=== PATIENT | male | born 1990 | race Caucasian/White ===

== ENCOUNTER 2017-06-24 14:10 | Emergency (ER) | payer SELFPAY ==
[~2017-06-24] VITALS: Ht 182.9 cm; Wt 101.7 kg
[2017-06-24 14:16] VITALS: TEMP 36.8; Ht 182.9 cm; Wt 101.7 kg
[2017-06-24] MEDS ORDERED: MELA1TAB5 PO (14:40)
[2017-06-24] MEDS ORDERED: MULT-506 PO (14:40)
[2017-06-24] MEDS ORDERED: ACETAMINOPHEN 500 MG TAB PO STA (14:47)
[2017-06-24] MEDS ORDERED: KETOROLAC TROMETHAMINE 30 MG/ML VIAL IV STA (14:47)
[2017-06-24 15:01] LABS: BASO % 0.2 %; BASO ABS # 0.02 K/uL (0-0.2); COMPLETE YES; EOS % 0.6 %; HEMATOCRIT 46.7 % (42-52); IG% 0.2 %; LYMPH ABS # 1.72 K/uL (1.2-3.4); MEAN CELL VOLUME 90.3 fL (80-100); MEAN CORPUSCULAR HEMOGLOBIN 31.3 pg (25-34); MEAN CORPUSCULAR HGB CONC 34.7 g/dl (32-36); MEAN PLATELET VOLUME 9.5 fL (7.4-10.4); MONO % 10.2 %; NEUT % 74.8 %; PLATELET COUNT 239 K/uL (130-400); RED BLOOD COUNT 5.17 M/uL (4.7-6.1); WHITE BLOOD COUNT 12.31 K/uL (4.8-10.8)
[2017-06-24 15:23] LABS: ALT/SGPT 37 U/L (12-78); AST/SGOT 11 U/L (15-37); BLOOD UREA NITROGEN 15 mg/dl (7-18); CALCIUM 9.7 mg/dl (8.5-10.1); CARBON DIOXIDE 24 mmol/L (21-32); CHLORIDE 103 mmol/L (98-107); CREATININE 0.91 mg/dl (0.60-1.40); GLUCOSE 102 mg/dl (70-99); POTASSIUM 4.2 mmol/L (3.5-5.1); SODIUM 136 mmol/L (136-145)
--- NOTE | 2017-06-24 15:25 | DIAGNOSTIC IMAGING REPORT ---
CHEST 2 VIEWS ROUTINE CLINICAL HISTORY: Atypical chest pain and shortness of breath COMPARISON STUDY: No previous studies for comparison. FINDINGS: The heart is normal in size. There are subtle right basilar airspace opacities. A minimal pneumonitis is suspected. There is blunting of the right posterior costophrenic angle. There is no failure.[ IMPRESSION: Minimal right basilar airspace opacities, possibly representing a minimal pneumonitis. Clinical and radiographic follow-up is recommended. Electronically signed by: Mick Almaguer M.D. 06/24/2017 3:24 PM Dictated Date/Time: 06/24/2017 3:22 PM
[2017-06-24 15:30] LABS: ALKALINE PHOSPHATASE 73 U/L (45-117)
[2017-06-24] MEDS ORDERED: PRED50TA PO (15:32)
--- NOTE | 2017-06-24 15:33 | EMERGENCY ROOM VISIT NOTE ---
History Report prepared by Stacyibluisito: Winston Fallon Under the Supervision of: Dr. Jakub Tadeo M.D. First contact with patient: 14:17 Chief Complaint: SHORTNESS OF BREATH Stated Complaint: TROUBLE BREATHING, RIGHT CHEST PAIN Nursing Triage Summary: triage note: Pt reports shortness of breath and right sided chest pain that goes into back and right shoulder since 0230 today. History of Present Illness The patient is a 26 year old white male who presents to the ED with a cc of intermittent right sided chest pain beginning last night. Pain radiates into back and shoulder. Typically lasts 10-30 seconds at a time. Positive shortness of breath. Negative fevers, chills, leg swelling. He denies recent trauma or injury. Has chronic cough, and is a smoker. No history of blood clots. His pain is improved with standing and worsened with laying flat. Source of History: patient Onset: Last night Position: chest (right) Symptom Intensity: 10-30 second-long episodes Timing: intermittent Modifying Factors (Worsening): other (laying flat) Modifying Factors (Relieving): other (standing) Associated Symptoms: + SOB, No fevers, No chills Review of Systems See HPI for pertinent positives and negatives. A total of ten systems were reviewed and were otherwise negative. Past Medical & Surgical Medical Problems: (1) No Known Active Medical Problems Family History No pertinent family history stated. Social History Smoking Status: Current Every Day Smoker Occupation Status: employed Current/Historical Medications Scheduled Multivitamin (Multivitamin), 1 TAB PO DAILY Prednisone (Prednisone), 50 MG PO DAILY Scheduled PRN Melatonin (Kp Melatonin), 1 TAB PO HS PRN for Sleep Allergies Coded Allergies: Azithromycin (Unverified Allergy, Severe, ANAPHYLAXIS, 06/24/17) Ibuprofen (Unverified Allergy, Severe, UNKNOWN, 06/24/17) Penicillins (Unverified Allergy, Severe, ANAPHYLAXIS SEE COMMENT, 06/24/17 ) "ALL CILLINS" PER PT Physical Exam Vital Signs Date Time Temp Pulse Resp B/P (MAP) Pulse Ox O2 Delivery O2 Flow Rate FiO2 06/24/17 15:50 88 16 115/78 98 06/24/17 15:02 114/75 06/24/17 14:55 89 18 97 06/24/17 14:40 100 19 97 Room Air 06/24/17 14:32 140/87 06/24/17 14:26 90 06/24/17 14:25 132/76 06/24/17 14:23 Room Air 06/24/17 14:16 36.8 96 20 124/82 97 Room Air Physical Exam GENERAL: Awake, alert, well-appearing, NAD HENT: Normocephalic, atraumatic. EYES: Normal conjunctiva. Sclera non-icteric. NECK: Supple. No nuchal rigidity. FROM. RESPIRATORY: CTAB, no rhonchi, wheezing, crackles CARDIAC: RRR, no MRG ABDOMEN: Soft, BS+, No RUQ TTP. No CVA tenderness. MSK: no LE edema. Mild right rib TTP. No crepitus. No redness or rash. No vesicles noted. No posterior chest wall TTP. NEURO: GCS 15, CN 2-12 intact, moves all 4s on command SKIN: No rash or jaundice noted. Medical Decision & Procedures ER Provider Diagnostic Interpretation: X-ray: Per my interpretation, radiologist review. CHEST 2 VIEWS ROUTINE FINDINGS: The heart is normal in size. There are subtle right basilar airspace opacities. A minimal pneumonitis is suspected. There is blunting of the right posterior costophrenic angle. There is no failure.[ IMPRESSION: Minimal right basilar airspace opacities, possibly representing a minimal pneumonitis. Clinical and radiographic follow-up is recommended. Electronically signed by: Mick Almaguer M.D. 06/24/2017 3:24 PM Laboratory Results 06/24/17 14:45 Red Blood Count 5.17, Mean Corpuscular Volume 90.3, Mean Corpuscular Hemoglobin 31.3, Mean Corpuscular Hemoglobin Concent 34.7, Mean Platelet Volume 9.5, Neutrophils (%) (Auto) 74.8, Lymphocytes (%) (Auto) 14.0, Monocytes (%) (Auto) 10.2, Eosinophils (%) (Auto) 0.6, Basophils (%) (Auto) 0.2, Neutrophils # (Auto ) 9.20, Lymphocytes # (Auto) 1.72, Monocytes # (Auto) 1.26, Eosinophils # (Auto ) 0.08, Basophils # (Auto) 0.02 06/24/17 14:45 Test 06/24/17 14:45 White Blood Count 12.31 K/uL (4.8-10.8) Red Blood Count 5.17 M/uL (4.7-6.1) Hemoglobin 16.2 g/dL (14.0-18.0) Hematocrit 46.7 % (42-52) Mean Corpuscular Volume 90.3 fL (80-100) Mean Corpuscular Hemoglobin 31.3 pg (25-34) Mean Corpuscular Hemoglobin Concent 34.7 g/dl (32-36) Platelet Count 239 K/uL (130-400) Mean Platelet Volume 9.5 fL (7.4-10.4) Neutrophils (%) (Auto) 74.8 % Lymphocytes (%) (Auto) 14.0 % Monocytes (%) (Auto) 10.2 % Eosinophils (%) (Auto) 0.6 % Basophils (%) (Auto) 0.2 % Neutrophils # (Auto) 9.20 K/uL (1.4-6.5) Lymphocytes # (Auto) 1.72 K/uL (1.2-3.4) Monocytes # (Auto) 1.26 K/uL (0.11-0.59) Eosinophils # (Auto) 0.08 K/uL (0-0.5) Basophils # (Auto) 0.02 K/uL (0-0.2) RDW Standard Deviation 41.0 fL (36.4-46.3) RDW Coefficient of Variation 12.5 % (11.5-14.5) Immature Granulocyte % (Auto) 0.2 % Immature Granulocyte # (Auto) 0.03 K/uL (0.00-0.02) Anion Gap 9.0 mmol/L (3-11) Est Creatinine Clear Calc Drug Dose 150.5 ml/min Estimated GFR () 133.4 Estimated GFR (Non- 115.1 BUN/Creatinine Ratio 16.0 (10-20) Calcium Level 9.7 mg/dl (8.5-10.1) Total Bilirubin 0.8 mg/dl (0.2-1) Direct Bilirubin 0.2 mg/dl (0-0.2) Aspartate Amino Transf (AST/SGOT) 11 U/L (15-37) Alanine Aminotransferase (ALT/SGPT) 37 U/L (12-78) Alkaline Phosphatase 73 U/L (45-117) Troponin I < 0.015 ng/ml (0-0.045) Total Protein 9.1 gm/dl (6.4-8.2) Albumin 4.5 gm/dl (3.4-5.0) Lipase 116 U/L (73-393) Laboratory results reviewed by me Medications Administered Medications (Trade) Dose Ordered Sig/Ivon Route Start Time Stop Time Status Last Admin Dose Admin Ketorolac Tromethamine (Toradol Inj) 30 mg NOW STAT IV 06/24/17 14:47 06/24/17 14:49 DC 06/24/17 15:03 30 MG Acetaminophen (Tylenol Tab) 1,000 mg NOW STAT PO 06/24/17 14:47 06/24/17 14:49 DC 06/24/17 15:05 1,000 MG ECG Indication: chest pain Rate (beats per minute): 90 Rhythm: normal sinus Findings: no ectopy, other (Normal intervals. Questionable T-wave flattening in lead 3 and AVF. No other STS changes or TWI.) ED Course 1440: The patient was evaluated in room A12B. A complete history and physical exam was performed. 1447: Ordered Tylenol Tab 1000 mg PO, Toradol Inj 30 mg IV. 1540: I reevaluated the patient. Discussed results and discharge instructions: he verbalized understanding and agreement. The patient is ready for discharge. Medical Decision The patient is a 26 year old white male who presents to the ED with a cc of intermittent right sided chest pain beginning last night. Differential diagnosis include etiologies such as cardiac ischemia, aortic dissection, pulmonary embolism, pneumonia, pneumothorax, musculoskeletal, infections, pericarditis, myocarditis, esophageal rupture, gastrointestinal, as well as others were entertained. Patient was seen and evaluated at the bedside. Patient had been complaining of some intermittent waxing waning right-sided chest pain. Patient denies any abdominal pain. Patient has no prior history of PE or DVT. Patient is PRC negative. Less likely PE. Patient has a nonischemic EKG and negative troponin. Less likely ACS. Patient chest x-ray concerning for possible pneumonitis. This likely related to his cigarette smoking. Patient was encouraged cessation. Patient does have a history of ibuprofen allergies was given a course of prednisone. Patient was given strict follow-up, discharge, and return precautions. Patient agreed with plan of care patient was safely discharged home. Medication Reconcilliation Current Medication List: was personally reviewed by me Blood Pressure Screening Patient's blood pressure: Elevated blood pressure Blood pressure disposition: Elevated BP felt to be situational Impression Primary Impression: Pneumonitis Additional Impression: Encounter for smoking cessation counseling Scribe Attestation The scribe's documentation has been prepared under my direction and personally reviewed by me in its entirety. I confirm that the note above accurately reflects all work, treatment, procedures, and medical decision making performed by me. Departure Information Dispostion Home / Self-Care Prescriptions Prednisone (PREDNISONE) 50 Mg Tab 50 MG PO DAILY for 5 Days, #5 TAB Prov: Jakub Tadeo M.D. 06/24/17 Referrals No Doctor, Assigned (PCP) Patient Instructions ED Dyspnea Shortness of Breath, ED Smoking Cessation, My [facility] Additional Instructions Please return to the emergency department if you have worsening or recurrent symptoms not amenable to at-home treatment. Please call for a follow-up appointment with her primary care physician. Please take your medications as prescribed. If you have other concerns and/or complaints please feel free to also call your primary care physician's office or return the ED for further evaluation, management, and treatment. You may take tylenol 1000mg every 6 hours as needed for pain. Consider smoking cessation as this can worsen your symptoms. You have been examined and treated today on an emergency basis only. This is not a substitute for, or an effort to provide, complete comprehensive medical care. It is impossible to recognize and treat all injuries or illnesses in a single emergency department visit. It is therefore important that you follow up closely with [facility]. Call as soon as possible for an appointment. Thank you for your time and consideration. I look forward to speaking with you again soon. Please don't hesitate to call us if you have any questions. Problem Qualifiers
[2017-06-24 15:50] VITALS: BP 115/78; PULSE 88; O2SAT 98
== END 2017-06-24 15:50 | disposition home or self-care (01) ==
LOC: C.EDB 14:12 → C.EDA 15:50
DX: J18.9 Pneumonia, unspecified organism (principal); F17.210 Nicotine dependence, cigarettes, uncomplicated; Z71.6 Tobacco abuse counseling

== ENCOUNTER 2017-06-26 13:46 | Inpatient (IN) | payer SELFPAY ==
[~2017-06-26] VITALS: Ht 182.9 cm; Wt 97.8 kg
[~2017-06-26 13:46] MED LIST: MELA1TAB5 PO; MULT-506 PO; PRED50TA PO
[2017-06-26] MEDS ORDERED: SODIUM CHLORIDE 0.9% 1000ML 1,000 ML IV STA (14:35)
--- NOTE | 2017-06-26 14:42 | EMERGENCY ROOM VISIT NOTE ---
History Report prepared by Margarette: Tia Charles Under the Supervision of: Dr. Connor Johnston M.D. First contact with patient: 14:17 Chief Complaint: SHORTNESS OF BREATH Stated Complaint: SOB,CHEST PAIN,COUGHING UP BLOOD History of Present Illness The patient is a 26 year old male who presents to the Emergency Room with complaints of persistent shortness of breath over the past several days. He currently rates his discomfort as a 5/10 in severity. The patient states that two days ago he was evaluated in the emergency department and diagnosed with pneumonitis. He states that he was discharged with Prednisone and has been using Tylenol for his pain. The patient reports right sided chest pain that is worsened with inspiration. He states that today he developed hemoptysis that prompted his emergency department visit today. The patient states that his chest pain is worsned with lying flat. He denies any recent surgery, recent travel, or personal or family history of blood clots. The patient denies any headache, loss of consciousness, fever, chills, abdominal pain, or calf pain or swelling. He denies any anticoagulant use. Source of History: patient Onset: past several days Position: other (global) Symptom Intensity: 5/10 Quality: other (shortness of breath) Timing: other (persistent) Associated Symptoms: + chest pain, No LOC, No fevers, No chills, No headache , No abdominal pain Note: Associated Symptoms: hemoptysis Review of Systems See HPI for pertinent positives & negatives. A total of 10 systems reviewed and were otherwise negative. Past Medical & Surgical Medical Problems: (1) Bronchitis (2) History of appendectomy (3) Hx of tonsillectomy Surgical Problems: (1) Hx of appendectomy (2) Hx of tonsillectomy Family History Diabetes mellitus FHx: cancer Kidney disease Kidney stones Social History Smoking Status: Current Every Day Smoker Alcohol Use: occasionally Marital Status: in relationship Housing Status: lives with significant other Occupation Status: employed Current/Historical Medications Scheduled Multivitamin (Multivitamin), 1 TAB PO DAILY Prednisone (Prednisone), 50 MG PO DAILY Scheduled PRN Melatonin (Kp Melatonin), 1 TAB PO HS PRN for Sleep Allergies Coded Allergies: Erythromycin (Unverified Allergy, Severe, ANAPHYLAXIS, 06/26/17) Ibuprofen (Unverified Allergy, Severe, UNKNOWN, 06/26/17) Penicillins (Unverified Allergy, Severe, ANAPHYLAXIS SEE COMMENT, 06/26/17 ) "ALL CILLINS" PER PT Physical Exam Vital Signs Date Time Temp Pulse Resp B/P (MAP) Pulse Ox O2 Delivery O2 Flow Rate FiO2 06/26/17 15:37 79 18 127/77 96 Room Air 06/26/17 14:13 36.9 93 18 132/75 95 Room Air Physical Exam GENERAL: Patient is well appearing and in no acute distress. HEENT: No acute trauma, normocephalic atraumatic, mucous membranes moist, no nasal congestion, no scleral icterus. NECK: No stridor, no adenopathy, no meningismus, trachea is midline. LUNGS: No dyspnea. Clear to auscultation and equal bilaterally. No wheeze, no rhonchi. HEART: Regular rate and rhythm. No murmurs, rubs, gallops appreciated. ABDOMEN: Soft, nontender, bowel sounds positive, no masses appreciated, no peritonitis. BACK: No midline tenderness, no CVA tenderness EXTREMITIES: Normal motion all extremities, no cyanosis, no edema. NEUROLOGIC: Alert and oriented, no acute motor or sensory deficits, no focal weakness, cranial nerves grossly intact. SKIN: No rash, no jaundice, no diaphoresis. Medical Decision & Procedures ER Provider Diagnostic Interpretation: Radiology results and stated below per my review and radiologist interpretation: (CHEST FOR PE) ANGIO WITH CLINICAL HISTORY: 26 years-old Male presenting with chest pain, concern for pulmonary embolus versus thoracic aortic injury. TECHNIQUE: Multidetector CT angiography of the chest was performed after administration of intravenous contrast. 3-D volumetric and/or maximum intensity projection (MIP) images were subsequently reconstructed for review. IV contrast: 118 mL of Optiray 320. A dose lowering technique was used consistent with the principles of ALARA (as low as reasonably achievable). COMPARISON: None. CT DOSE (mGy.cm): The estimated cumulative dose is 477.14 mGy.cm. FINDINGS: Residence Supervisor topogram: Unremarkable. Pulmonary vasculature: The study is suboptimal secondary to the timing of contrast. Allowing for this, filling defect within a segmental pulmonary artery in the posterior basal left lower lobe (series 4 image 73). Additional filling defect within a segmental or subsegmental pulmonary artery to the posterior basal right lower lobe (series 4 image 96). Main pulmonary artery is not enlarged. No flattening of the interventricular septum. No intracardiac intracardiac filling defect. No reflux of contrast into the hepatic veins. Remaining chest: On soft tissue windows, normal thyroid and thoracic inlet. Multiple prominent mediastinal and bilateral hilar nodes. Allowing for nongated technique, normal aorta. Normal heart size. No pericardial or pleural effusion. Upper abdomen normal. On lung windows, extensive consolidation in the posterior basal segment of the right lower lobe with peripheral bandlike consolidation and central groundglass and heterogeneous solid consolidation. This follows the same distribution as the filling defect within the pulmonary artery, although its extent is slightly greater than expected. Minimal bandlike opacity in the left lower lobe, possibly atelectasis. Airways patent. On bone windows, normal osseous structures. IMPRESSION: 1. Findings consistent with acute pulmonary emboli in segmental and subsegmental pulmonary arteries of the bilateral lower lobes. 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 Limited atelectasis in the left lower lobe. 2. Prominent mediastinal and bilateral hilar lymph nodes. These may be reactive, however, 3-6 month follow-up CT to be considered as clinically indicated. The report will be called/faxed according to standard departmental protocol. Electronically signed by: Amadeo Rivas M.D. 06/26/2017 3:40 PM Dictated Date/Time: 06/26/2017 3:31 PM ULTRASOUND BILATERAL LOWER EXTREMITY VENOUS CLINICAL HISTORY: Pulmonary embolus.. COMPARISON STUDY: No priors. TECHNIQUE: Real-time, grayscale, and color Doppler sonography of the deep veins of the right and left lower extremity was performed from the inguinal crease to the calf. Compression and augmentation were utilized. FINDINGS: There is no sonographic evidence of deep venous thrombosis identified in the right or left lower extremity. The common femoral, superficial femoral, and popliteal veins are patent and normally compressible bilaterally. The greater saphenous vein and the profunda femoris vein at the junction with the common femoral vein are clear in both legs. The visualized calf veins are patent bilaterally. IMPRESSION: There is no sonographic evidence of deep venous thrombosis identified in the right or left lower extremity. Electronically signed by: Giovani Lockwood M.D. 06/26/2017 5:12 PM Dictated Date/Time: 06/26/2017 5:12 PM Laboratory Results 06/26/17 14:57 Red Blood Count 4.49, Mean Corpuscular Volume 90.4, Mean Corpuscular Hemoglobin 29.8, Mean Corpuscular Hemoglobin Concent 33.0, Mean Platelet Volume 9.5, Neutrophils (%) (Auto) 81.8, Lymphocytes (%) (Auto) 7.7, Monocytes (%) (Auto) 9.9, Eosinophils (%) (Auto) 0.2, Basophils (%) (Auto) 0.1, Neutrophils # (Auto) 10.43, Lymphocytes # (Auto) 0.98, Monocytes # (Auto) 1.26, Eosinophils # (Auto) 0.02, Basophils # (Auto) 0.01 06/26/17 14:57 Test 06/26/17 14:57 White Blood Count 12.74 K/uL (4.8-10.8) Red Blood Count 4.49 M/uL (4.7-6.1) Hemoglobin 13.4 g/dL (14.0-18.0) Hematocrit 40.6 % (42-52) Mean Corpuscular Volume 90.4 fL (80-100) Mean Corpuscular Hemoglobin 29.8 pg (25-34) Mean Corpuscular Hemoglobin Concent 33.0 g/dl (32-36) Platelet Count 236 K/uL (130-400) Mean Platelet Volume 9.5 fL (7.4-10.4) Neutrophils (%) (Auto) 81.8 % Lymphocytes (%) (Auto) 7.7 % Monocytes (%) (Auto) 9.9 % Eosinophils (%) (Auto) 0.2 % Basophils (%) (Auto) 0.1 % Neutrophils # (Auto) 10.43 K/uL (1.4-6.5) Lymphocytes # (Auto) 0.98 K/uL (1.2-3.4) Monocytes # (Auto) 1.26 K/uL (0.11-0.59) Eosinophils # (Auto) 0.02 K/uL (0-0.5) Basophils # (Auto) 0.01 K/uL (0-0.2) RDW Standard Deviation 41.6 fL (36.4-46.3) RDW Coefficient of Variation 12.7 % (11.5-14.5) Immature Granulocyte % (Auto) 0.3 % Immature Granulocyte # (Auto) 0.04 K/uL (0.00-0.02) Anion Gap 7.0 mmol/L (3-11) Est Creatinine Clear Calc Drug Dose 161.5 ml/min Estimated GFR () 138.4 Estimated GFR (Non- 119.4 BUN/Creatinine Ratio 15.1 (10-20) Calcium Level 9.5 mg/dl (8.5-10.1) Troponin I < 0.015 ng/ml (0-0.045) Laboratory results as reviewed by me. Medications Administered Medications (Trade) Dose Ordered Sig/Ivon Route Start Time Stop Time Status Last Admin Dose Admin Sodium Chloride 1,000 ml @ 999 mls/hr Q1H1M STAT IV 06/26/17 14:35 06/26/17 15:35 DC 06/26/17 15:00 999 MLS/HR Nicotine (Nicoderm Cq 7 Mg Patch) 1 patch QAM TD 06/26/17 16:00 06/26/17 19:07 DC 06/26/17 17:17 1 PATCH Nicotine Polacrilex (Nicorette 2MG Gum) 2 piece PRN PRN MT 06/26/17 16:00 06/26/17 19:08 DC 06/26/17 16:25 2 PIECE ECG Indication: chest pain, SOB/dyspnea Rate (beats per minute): 75 Rhythm: normal sinus Findings: no acute ischemic change, no ectopy ED Course 1422: The patient was evaluated in room B3B. A complete history and physical exam was performed Dr. Love, Internet Researcher. 1435: Ordered Sodium Chloride 1000 ml @ 999 mls/hr IV. 1436: Dr. Love, Internet Researcher updated the patient on the treatment plan. 1445: The patient was evaluated in room B3B. A complete history and physical exam was performed. He is agreeable to having a CT scan. 1549: I reevaluated the patient with Dr. Love, Internet Researcher. I discussed the exam findings with him and I discussed the treatment plan. He periodically coughs up blood in the room, but is otherwise stabilized. He verbalized complete understanding and agreement. He will have further testing and will be evaluated for further treatment. 1600: Dr. Love, Internet Researcher discussed the patients case with Dr. Wilson [facility]. Dr. Wilson will evaluate the patient for further treatment. Ordered Nicotine Polacrilex 2 piece MT, Nicotine 1 patch TD. Medical Decision Differential: Pulmonary Embolism, Infectious, Reactive Airway Disease, Pneumonia , Pneumothorax, ACS, MSK, GI, Dissection, amongst other etiologies entertained. Pleasant 26 yr old male with several days right lower chest discomfort. Seen 2 days ago for evaluation of symptoms with some pneumonitis noted on imaging thus started on steroids. Notes worsening today with right lower chest pain associated with cough that contains blood. He is petroleum terminal plant operator smoker. No DVT/PE risk factors. Last travel was to [place] and that was over 4 months ago. His vitals are completely normal and he is clearly stable other than a bit uncomfortable. Given he is having pleuritic chest pain, now with blood in cough I have opted to go ahead and do CT PE study as no longer dimer eligible. Labs unremarkable. EKG looks good. No evidence pericarditis/myocarditis/acs. CT reveals right sided PE with lung infarction. With hemoptysis, no outpatient follow up available and symptoms I feel he will need to come in for further work -up and evaluation. I have held off on heparin and will defer to hospitalist service anticoagulation of choice as he is currently hemodynamically stable. For work-up I added on US bilateral legs as well as hypercoag work-up given no clear cause of this episode. Medication Reconcilliation Current Medication List: was personally reviewed by me Consults Time Called: 1554 Consulting Physician: KENNY Charles Returned Call: 1600 Dr. Love, Internet Researcher discussed the patients case with KENNY Charles. Dr. Wilson will evaluate the patient for further treatment. Impression Primary Impression: Pulmonary embolism Additional Impression: Pulmonary infarction Scribe Attestation The scribe's documentation has been prepared under my direction and personally reviewed by me in its entirety. I confirm that the note above accurately reflects all work, treatment, procedures, and medical decision making performed by me. Departure Information Dispostion Being Evaluated By Hospitalist Referrals No Doctor, Assigned (PCP) Problem Qualifiers
--- NOTE | 2017-06-26 14:57 | EMERGENCY ROOM VISIT NOTE ---
History First contact with patient: 14:33 Chief Complaint: SHORTNESS OF BREATH Stated Complaint: SOB,CHEST PAIN,COUGHING UP BLOOD History of Present Illness The patient is a 26 year old male who presents to the Emergency Room with complaints of SOB and coughing blood -Pt is 2 days after coming to the ED with right side chest pain, cough and SOB. Dx with pneumonitis -Pt said he came today because the pain symptoms have not improved and he had began to cough blood -Pt said the pain is sharp, worse with inspiration and cough. -Pt says that the blood is mixed in mucus, sometimes streaks, sometimes large dark black mucus plugs -Pt is a 10 year PPD smoker. -Pt denies fever/n/v/d -Pt denies h/o allergies or asthma -Pt denies family history of clotting disorder, PE -No calf pain -Pt denies recent immobility; long car rides, surgery -Denies recent travel Review of Systems see below Constitutional: No fever, No chills, No sweats Respiratory: + cough, + sputum, + shortness of breath, + dyspnea on exertion , + hemoptysis, No wheezing Abdomen: No pain, No nausea, No vomiting, No diarrhea Past Medical/Surgical History Medical Problems: (1) Bronchitis (2) History of appendectomy (3) Hx of tonsillectomy Surgical Problems: (1) Hx of appendectomy (2) Hx of tonsillectomy Family History Diabetes mellitus FHx: cancer Kidney disease Kidney stones Social History Smoking Status: Current Every Day Smoker Occupation Status: employed Current/Historical Medications Scheduled Multivitamin (Multivitamin), 1 TAB PO DAILY Prednisone (Prednisone), 50 MG PO DAILY Scheduled PRN Melatonin (Kp Melatonin), 1 TAB PO HS PRN for Sleep Physical Exam Vital Signs Date Time Temp Pulse Resp B/P (MAP) Pulse Ox O2 Delivery O2 Flow Rate FiO2 06/26/17 17:15 90 18 143/83 98 Room Air 06/26/17 15:37 79 18 127/77 96 Room Air 06/26/17 14:13 36.9 93 18 132/75 95 Room Air Physical Exam see below General Appearance: WD/WN, no apparent distress Head: normocephalic, atraumatic Respiratory/Chest: chest non-tender, lungs clear, normal breath sounds, no respiratory distress, no accessory muscle use Cardiovascular: regular rate, rhythm, no edema, no gallop, no JVD, no murmur Abdomen / GI: normal bowel sounds, non tender, soft, no organomegaly Medical Decision & Procedures Laboratory Results 06/26/17 14:57 Red Blood Count 4.49, Mean Corpuscular Volume 90.4, Mean Corpuscular Hemoglobin 29.8, Mean Corpuscular Hemoglobin Concent 33.0, Mean Platelet Volume 9.5, Neutrophils (%) (Auto) 81.8, Lymphocytes (%) (Auto) 7.7, Monocytes (%) (Auto) 9.9, Eosinophils (%) (Auto) 0.2, Basophils (%) (Auto) 0.1, Neutrophils # (Auto) 10.43, Lymphocytes # (Auto) 0.98, Monocytes # (Auto) 1.26, Eosinophils # (Auto) 0.02, Basophils # (Auto) 0.01 06/26/17 14:57 Test 06/26/17 14:57 06/26/17 17:31 White Blood Count 12.74 K/uL (4.8-10.8) Red Blood Count 4.49 M/uL (4.7-6.1) Hemoglobin 13.4 g/dL (14.0-18.0) Hematocrit 40.6 % (42-52) Mean Corpuscular Volume 90.4 fL (80-100) Mean Corpuscular Hemoglobin 29.8 pg (25-34) Mean Corpuscular Hemoglobin Concent 33.0 g/dl (32-36) Platelet Count 236 K/uL (130-400) Mean Platelet Volume 9.5 fL (7.4-10.4) Neutrophils (%) (Auto) 81.8 % Lymphocytes (%) (Auto) 7.7 % Monocytes (%) (Auto) 9.9 % Eosinophils (%) (Auto) 0.2 % Basophils (%) (Auto) 0.1 % Neutrophils # (Auto) 10.43 K/uL (1.4-6.5) Lymphocytes # (Auto) 0.98 K/uL (1.2-3.4) Monocytes # (Auto) 1.26 K/uL (0.11-0.59) Eosinophils # (Auto) 0.02 K/uL (0-0.5) Basophils # (Auto) 0.01 K/uL (0-0.2) RDW Standard Deviation 41.6 fL (36.4-46.3) RDW Coefficient of Variation 12.7 % (11.5-14.5) Immature Granulocyte % (Auto) 0.3 % Immature Granulocyte # (Auto) 0.04 K/uL (0.00-0.02) Anion Gap 7.0 mmol/L (3-11) Est Creatinine Clear Calc Drug Dose 161.5 ml/min Estimated GFR () 138.4 Estimated GFR (Non- 119.4 BUN/Creatinine Ratio 15.1 (10-20) Calcium Level 9.5 mg/dl (8.5-10.1) Troponin I < 0.015 ng/ml (0-0.045) Prothrombin Time 10.8 SECONDS (9.0-12.0) Prothromb Time International Ratio 1.0 (0.9-1.1) Activated Partial Thromboplast Time 31.3 SECONDS (21.0-31.0) Partial Thromboplastin Ratio 1.2 Medications Administered Medications (Trade) Dose Ordered Sig/Ivon Route Start Time Stop Time Status Last Admin Dose Admin Sodium Chloride 1,000 ml @ 999 mls/hr Q1H1M STAT IV 06/26/17 14:35 06/26/17 15:35 DC 06/26/17 15:00 999 MLS/HR Nicotine (Nicoderm Cq 7 Mg Patch) 1 patch QAM TD 06/26/17 16:00 07/26/17 15:59 06/26/17 17:17 1 PATCH Nicotine Polacrilex (Nicorette 2MG Gum) 2 piece PRN PRN MT 06/26/17 16:00 07/26/17 15:59 06/26/17 16:25 2 PIECE Warfarin Sodium (Coumadin Tab) 5 mg 1640 ONCE PO 06/26/17 16:40 06/26/17 17:04 DC 06/26/17 17:18 5 MG Enoxaparin Sodium (Lovenox Inj) 100 mg ONE ONCE SQ 06/26/17 17:15 06/26/17 17:16 DC 06/26/17 17:19 100 MG ED Course 1430--reviewed patients chart, previous ED visit 1435--History and physical exam performed, IVF 1445--order chest CT 1450--evaluated EKG 1545--evaluated CT scan-->showed multiple PE of right lower lobe 15:50--ordered coagulation studies, doppler USG of bilateral LE 1600--reaccessed patient, discussed admission with hospitalist Medical Decision 26 with hemoptysis, cough and SOB Considering the following differential: pulmonary embolism, pneumonia: atypical/ community acquired, pneumothorax, TB, neoplasm Pt seen to have multiple PE in right lower lobe Impression Primary Impression: Pulmonary embolism Departure Information Referrals No Doctor, Assigned (PCP) Patient Instructions [facility]
[2017-06-26] MEDS ORDERED: OPTIRAY 320 IV PRN (15:00)
[2017-06-26 15:22] LABS: BASO % 0.1 %; BASO ABS # 0.01 K/uL (0-0.2); COMPLETE YES; EOS % 0.2 %; HEMATOCRIT 40.6 % (42-52); IG% 0.3 %; LYMPH % 7.7 %; LYMPH ABS # 0.98 K/uL (1.2-3.4); MEAN CELL VOLUME 90.4 fL (80-100); MEAN CORPUSCULAR HEMOGLOBIN 29.8 pg (25-34); MEAN PLATELET VOLUME 9.5 fL (7.4-10.4); MONO % 9.9 %; NEUT % 81.8 %; PLATELET COUNT 236 K/uL (130-400); RED BLOOD COUNT 4.49 M/uL (4.7-6.1); WHITE BLOOD COUNT 12.74 K/uL (4.8-10.8)
[2017-06-26 15:27] LABS: BLOOD UREA NITROGEN 13 mg/dl (7-18); BUN/CREATININE RATIO 15.1 (10-20); CALCIUM 9.5 mg/dl (8.5-10.1); CARBON DIOXIDE 26 mmol/L (21-32); CHLORIDE 103 mmol/L (98-107); CREATININE 0.85 mg/dl (0.60-1.40); GLUCOSE 122 mg/dl (70-99); POTASSIUM 3.8 mmol/L (3.5-5.1); SODIUM 136 mmol/L (136-145)
--- NOTE | 2017-06-26 15:42 | DIAGNOSTIC IMAGING REPORT ---
(CHEST FOR PE) ANGIO WITH CLINICAL HISTORY: 26 years-old Male presenting with chest pain, concern for pulmonary embolus versus thoracic aortic injury. TECHNIQUE: Multidetector CT angiography of the chest was performed after administration of intravenous contrast. 3-D volumetric and/or maximum intensity projection (MIP) images were subsequently reconstructed for review. IV contrast: 118 mL of Optiray 320. A dose lowering technique was used consistent with the principles of ALARA (as low as reasonably achievable). COMPARISON: None. CT DOSE (mGy.cm): The estimated cumulative dose is 477.14 mGy.cm. FINDINGS: Radiagraph Operator topogram: Unremarkable. Pulmonary vasculature: The study is suboptimal secondary to the timing of contrast. Allowing for this, filling defect within a segmental pulmonary artery in the posterior basal left lower lobe (series 4 image 73). Additional filling defect within a segmental or subsegmental pulmonary artery to the posterior basal right lower lobe (series 4 image 96). Main pulmonary artery is not enlarged. No flattening of the interventricular septum. No intracardiac intracardiac filling defect. No reflux of contrast into the hepatic veins. Remaining chest: On soft tissue windows, normal thyroid and thoracic inlet. Multiple prominent mediastinal and bilateral hilar nodes. Allowing for nongated technique, normal aorta. Normal heart size. No pericardial or pleural effusion. Upper abdomen normal. On lung windows, extensive consolidation in the posterior basal segment of the right lower lobe with peripheral bandlike consolidation and central groundglass and heterogeneous solid consolidation. This follows the same distribution as the filling defect within the pulmonary artery, although its extent is slightly greater than expected. Minimal bandlike opacity in the left lower lobe, possibly atelectasis. Airways patent. On bone windows, normal osseous structures. IMPRESSION: 1. Findings consistent with acute pulmonary emboli in segmental and subsegmental pulmonary arteries of the bilateral lower lobes. 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 Limited atelectasis in the left lower lobe. 2. Prominent mediastinal and bilateral hilar lymph nodes. These may be reactive, however, 3-6 month follow-up CT to be considered as clinically indicated. The report will be called/faxed according to standard departmental protocol. Electronically signed by: Amadeo Rivas M.D. 06/26/2017 3:40 PM Dictated Date/Time: 06/26/2017 3:31 PM
[2017-06-26] MEDS ORDERED: NICOTINE POLACRILEX 2 MG GUM MT PRN (16:00)
[2017-06-26] MEDS ORDERED: NICOTINE 7 MG/24 HR TDSY TD SCH (16:00)
[2017-06-26] MEDS ORDERED: ONDANSETRON INJ 2 MG/ML 2 ML VIAL IV PRN (16:30)
[2017-06-26] MEDS ORDERED: WARFARIN SOD 5 MG TAB PO ONE (16:40)
--- NOTE | 2017-06-26 17:14 | DIAGNOSTIC IMAGING REPORT ---
ULTRASOUND BILATERAL LOWER EXTREMITY VENOUS CLINICAL HISTORY: Pulmonary embolus.. COMPARISON STUDY: No priors. TECHNIQUE: Real-time, grayscale, and color Doppler sonography of the deep veins of the right and left lower extremity was performed from the inguinal crease to the calf. Compression and augmentation were utilized. FINDINGS: There is no sonographic evidence of deep venous thrombosis identified in the right or left lower extremity. The common femoral, superficial femoral, and popliteal veins are patent and normally compressible bilaterally. The greater saphenous vein and the profunda femoris vein at the junction with the common femoral vein are clear in both legs. The visualized calf veins are patent bilaterally. IMPRESSION: There is no sonographic evidence of deep venous thrombosis identified in the right or left lower extremity. Electronically signed by: Giovani Lockwood M.D. 06/26/2017 5:12 PM Dictated Date/Time: 06/26/2017 5:12 PM
[2017-06-26] MEDS ORDERED: ENOXAPARIN 100 MG/1ML SYR SQ ONE (17:15)
[2017-06-26 17:42] VITALS: BP 149/89; PULSE 77; TEMP 36.8; O2SAT 98; Ht 182.9 cm; Wt 97.8 kg
--- NOTE | 2017-06-26 17:42 | History and Physical ---
History & Physical Date & Time of Service: Jun 26, 2017 at 16:59 Chief Complaint: Sob,Chest Pain,Coughing Up Blood Primary Care Physician: No Doctor, Assigned History of Present Illness Source: patient Pt is 26 yo M who presents with c/o R sided pleuritic CP, SOB x 3 days. Pt was seen in ER 2 days ago and had CXR showed right basilar opacity and was discharged home on prednisone. Pt states yesterday with mild rhinorrhea. Reports today started with hemoptysis described as clotted blood, and pleuritic CP and SOB continued so returned to ER today. Pt had CT angio showing PE bilateral lower lobes and extensive RLL infarct. Limited atelectasis in LLL. HGB down to 13 from 16 two days ago. Negative Troponin. Smokes 1/2 ppd x 12 years and states has chronic cough. Denies recent travel, prolonged immobilization, recent surgery, injury/trauma or hx DVT or PE in past. Denies FH of DVT/PE or clotting disorder. Denies hx asthma. Denies fever/chills, diaphoresis, N/V/D/C, WELLS, dizziness, syncope, vision changes, neck pain, palpitations, sore throat, choking, otalgia, abdominal pain, paresthesias, weakness, extremity weakness, extremity edema or erythema, extremity pain, rashes, or urinary symptoms. Pt states does not have PCP. Pt reports does not have medical insurance. Past Medical/Surgical History Medical Problems: (1) Bronchitis Status: Resolved Surgical Problems: (1) Hx of appendectomy Status: Resolved (2) Hx of tonsillectomy Status: Resolved Family History Diabetes mellitus FHx: cancer Kidney disease Kidney stones Social History Smoking Status: Current Every Day Smoker (1/2 ppd x 12 years) Smokeless Tobacco Use: No Alcohol Use: 1 beer nightly, 4-10 beers on weekends Drug Use: marijuana Marital Status: in relationship Housing status: lives with significant other Occupational Status: employed Multi-Drug Resistant Organisms History of MDRO: No Allergies Coded Allergies: Erythromycin (Unverified Allergy, Severe, ANAPHYLAXIS, 06/26/17) Ibuprofen (Unverified Allergy, Severe, UNKNOWN, 06/26/17) Penicillins (Unverified Allergy, Severe, ANAPHYLAXIS SEE COMMENT, 06/26/17 ) "ALL CILLINS" PER PT Home Medications Scheduled Multivitamin (Multivitamin), 1 TAB PO DAILY Prednisone (Prednisone), 50 MG PO DAILY Scheduled PRN Melatonin (Kp Melatonin), 1 TAB PO HS PRN for Sleep Review of Systems See HPI for pertinent positives & negatives. A total of 10 systems reviewed and were otherwise negative Physical Exam Vital Signs Date Time Temp Pulse Resp B/P (MAP) Pulse Ox O2 Delivery O2 Flow Rate FiO2 06/26/17 15:37 79 18 127/77 96 Room Air 06/26/17 14:13 36.9 93 18 132/75 95 Room Air General Appearance: WD/WN, no apparent distress Head: normocephalic, atraumatic Eyes: normal inspection, PERRL, EOMI ENT: normal ENT inspection, hearing grossly normal, TMs normal, pharynx normal Neck: supple, no adenopathy, no JVD, trachea midline Respiratory/Chest: chest non-tender, no respiratory distress, no accessory muscle use, + decreased breath sounds (RLL), + pertinent finding (no wheezing/ rhonchi/rales) Cardiovascular: regular rate, rhythm, no murmur Abdomen/GI: normal bowel sounds, non tender, soft Back: normal inspection, normal range of motion Extremities/Musculoskelatal: normal inspection, no calf tenderness, normal capillary refill, no pedal edema, normal range of motion, non-tender Neurologic/Psych: alert, normal mood/affect, oriented x 3 Skin: normal color, warm/dry, no rash Diagnostics Laboratory Results Results Past 24 Hours Test 06/26/17 14:57 06/26/17 15:47 Range/Units White Blood Count 12.74 4.8-10.8 K/uL Red Blood Count 4.49 4.7-6.1 M/uL Hemoglobin 13.4 14.0-18.0 g/dL Hematocrit 40.6 42-52 % Mean Corpuscular Volume 90.4 80-100 fL Mean Corpuscular Hemoglobin 29.8 25-34 pg Mean Corpuscular Hemoglobin Concent 33.0 32-36 g/dl Platelet Count 236 130-400 K/uL Mean Platelet Volume 9.5 7.4-10.4 fL Neutrophils (%) (Auto) 81.8 % Lymphocytes (%) (Auto) 7.7 % Monocytes (%) (Auto) 9.9 % Eosinophils (%) (Auto) 0.2 % Basophils (%) (Auto) 0.1 % Neutrophils # (Auto) 10.43 1.4-6.5 K/uL Lymphocytes # (Auto) 0.98 1.2-3.4 K/uL Monocytes # (Auto) 1.26 0.11-0.59 K/uL Eosinophils # (Auto) 0.02 0-0.5 K/uL Basophils # (Auto) 0.01 0-0.2 K/uL RDW Standard Deviation 41.6 36.4-46.3 fL RDW Coefficient of Variation 12.7 11.5-14.5 % Immature Granulocyte % (Auto) 0.3 % Immature Granulocyte # (Auto) 0.04 0.00-0.02 K/uL Sodium Level 136 136-145 mmol/L Potassium Level 3.8 3.5-5.1 mmol/L Chloride Level 103 98-107 mmol/L Carbon Dioxide Level 26 21-32 mmol/L Anion Gap 7.0 3-11 mmol/L Blood Urea Nitrogen 13 7-18 mg/dl Creatinine 0.85 0.60-1.40 mg/dl Est Creatinine Clear Calc Drug Dose 161.5 ml/min Estimated GFR () 138.4 Estimated GFR (Non- 119.4 BUN/Creatinine Ratio 15.1 10-20 Random Glucose 122 70-99 mg/dl Calcium Level 9.5 8.5-10.1 mg/dl Troponin I < 0.015 0-0.045 ng/ml Diagnostic Radiology CT SCAN CHEST: IMPRESSION: 1. Findings consistent with acute pulmonary emboli in segmental and subsegmental pulmonary arteries of the bilateral lower lobes. 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 Limited atelectasis in the left lower lobe. 2. Prominent mediastinal and bilateral hilar lymph nodes. These may be reactive, however, 3-6 month follow-up CT to be considered as clinically indicated. EKG EKG: NSR rate 75, no significant ST elevation noted Impression Assessment and Plan PULMONARY EMBOLISM -U/S bilateral lower extremities pending -hypercoagulably panel pending -will order ECHO -lovenox 1mg/kg BID -start coumadin 5mg -percocet 1 tab Q 4 hrs prn pain -O2 2L via NC per protocol -incentive spirometry as per protocol -CBC, PT-INR in AM -repeat EKG in AM -behavioral health case manager consult to help determine most affordable anticoagulation med choice TOBACCO USE -nicotine patch ordered -discussed smoking cessation DVT PROPHYLAXIS -pt receiving lovenox for PE DISPOSITION -admit tele -does not have PCP Agree with above h and p. Briefly 26m presents with sob and chest pain going on for last 3 days. He was in Er and was discharged on prednisone. But lately started to cough up blood and came back to Er and CT scan showed b/l PE and RLL infarct. Currently resting comfortably and hemodynamically stable. Still coughing up some blood. Afebrile. HAs pleuritic chest pain. No nausea. No blood in stools or in urine. p/e GE not in distress Cvs s1 and s2 heard no murmurs Rs cta b/l no added sounds Abd benign Activity Assistant Non focal Ext no edema a/p Acute PE no previous hx of clots no family hx HAs RLL infarct stared on Lovenox and Coumadin needs followup with pcp and hematology for workup Tobacco abuse advise to quit Level of Care Telemetry Resuscitation Status FULL RESUSCITATION VTE Prophylaxis VTE Risk Assessment Done? Y/N: Yes Risk Level: High Given or contraindicated: Other Anticoagulation
[2017-06-26 17:54] LABS: PARTIAL THROMBOPLASTIN RATIO 1.2; PROTHROMBIN TIME (PATIENT) 10.8 SECONDS (9.0-12.0)
[2017-06-26] MEDS ORDERED: MoRPHine SULFATE 2 MG/ML CARP ONE (18:30)
[2017-06-26] MEDS ORDERED: NURSING VERBAL MED ORDER ONE (18:45)
[2017-06-26 19:35] VITALS: BP 138/68; PULSE 86; TEMP 36.8; O2SAT 99
[2017-06-26] MEDS: ACETAMINOPHEN 325 MG TAB PO PRN (23:44)
[2017-06-27] VITALS (7 sets, daily range): BP systolic 126–144; BP diastolic 75–85; PULSE 77–99; TEMP 36.4–37.5; O2SAT 95–99
[2017-06-27] MEDS: ACETAMINOPHEN 325 MG TAB PO PRN (04:06)
[2017-06-27] MEDS: OXYCODONE/ACETAMINOPHEN 5-325 TAB PO PRN ×5 (04:54→23:18)
[2017-06-27] MEDS: ENOXAPARIN 100 MG/1ML SYR SQ SCH ×2 (05:31→18:14)
[2017-06-27 06:21] LABS: HEMATOCRIT 39.2 % (42-52); MEAN CELL VOLUME 90.3 fL (80-100); MEAN CORPUSCULAR HEMOGLOBIN 30.4 pg (25-34); MEAN CORPUSCULAR HGB CONC 33.7 g/dl (32-36); MEAN PLATELET VOLUME 9.6 fL (7.4-10.4); PLATELET COUNT 252 K/uL (130-400); RED BLOOD COUNT 4.34 M/uL (4.7-6.1)
[2017-06-27 06:31] LABS: PROTHROMBIN TIME (PATIENT) 11.1 SECONDS (9.0-12.0)
[2017-06-27] MEDS ORDERED: PERFLUTREN LIPID MICROSPHERE (DEFINITY) IV ONE (08:47)
[2017-06-27] MEDS: NICOTINE 14 MG/24 HR TDSY TD SCH (09:13)
--- NOTE | 2017-06-27 11:15 | ECHOCARDIOGRAM REPORT ---
*NOTICE TO RECEIVING CONSTITUTION PARTY AGENCY This information is strictly Confidential and protected under [place] law. [place] law prohibits you from making any further disclosure of this information unless further disclosure is expressly permitted by the written consent of the person to whom it pertains or is authorized by law. A general authorization for the release of medical or other information is not sufficient for this purpose. Hospital accepts no responsibility if the information is made available to any other person, INCLUDING THE PATIENT. Interpretation Summary * Name: AMY BELTRÁN Study Date: 06/27/2017 08:16 AM BP: 136/81 mmHg * Patient Location: .2T\S\S235\S\1 HR: 90 * : 1990 (M/d/yyyy) Gender: Male Height: 72 in * Age: 26 yrs Ethnicity: CA Weight: 225 lb * Ordering Physician: Rosa Ochoa * Referring Physician: Self, Referred * Performed By: Rossana Magana RDCS * * Reason For Study: PE * BSA: 2.2 m2 * -- Conclusions -- * The left ventricle is normal in size. * Left ventricular systolic function is normal. * Ejection Fraction = 60-65%. * The right ventricular systolic function is normal. * The left atrial size is normal. * Right atrial size is normal. * No significant vavular pathology. Procedure Details * A complete two-dimensional transthoracic echocardiogram was performed (2D, M-mode, Doppler and color flow Doppler). * The study was technically difficult. * A contrast injection of Definity was performed to improve assessment of LV function. * Contrast was injected into an intravenous site in the left arm. * One vial of Definity ultrasound contrast was diluted in normal saline to a total volume of 10 ml. A total of '2' ml of solution was administered during imaging. * Lot # [id number] of Definity utilized for procedure. * Expiration date JUL 01. * The attending nurse who injected the contrast agent was Fabi Rosales RN. Left Ventricle * The left ventricle is normal in size. * There is normal left ventricular wall thickness. * Ejection Fraction = 60-65%. * Left ventricular systolic function is normal. Right Ventricle * The right ventricle is normal size. * The right ventricular systolic function is normal. Atria * The left atrial size is normal. * Right atrial size is normal. * The interatrial septum is intact with no evidence for an atrial septal defect. Mitral Valve * The mitral valve anatomy is normal. * Significant mitral regurgitation is absent. Tricuspid Valve * The tricuspid valve is not well visualized, but is grossly normal. * Significant tricuspid regurgitation is absent. Aortic Valve * The aortic valve is trileaflet. * Aortic stenosis is absent. * No aortic regurgitation is present. Great Vessels * The aortic root and proximal ascending aorta are normal sized. Pericardium/Pleural * There is no pericardial effusion. MMode 2D Measurements and Calculations IVSd 0.75 cm LVIDd 4.4 cm LVIDs 3.0 cm LVPWd 0.89 cm IVS/LVPW 0.84 FS 30.4 % EDV(Teich) 85.6 ml ESV(Teich) 35.9 ml EF(Teich) 58.1 % EDV(cubed) 82.7 ml ESV(cubed) 27.9 ml EF(cubed) 66.3 % LV mass(C)d 110.8 grams LV mass(C)dI 49.5 grams/m\S\2 SV(Teich) 49.8 ml SI(Teich) 22.2 ml/m\S\2 SV(cubed) 54.8 ml SI(cubed) 24.5 ml/m\S\2 Ao root diam 2.8 cm Ao root area 6.2 cm\S\2 ACS 2.3 cm asc Aorta Diam 2.8 cm LVOT diam 2.0 cm LVOT area 3.3 cm\S\2 LVAd ap4 30.7 cm\S\2 LVLd ap4 8.5 cm EDV(MOD-sp4) 90.9 ml EDV(sp4-el) 94.4 ml LVAs ap4 18.8 cm\S\2 LVLs ap4 7.4 cm ESV(MOD-sp4) 38.8 ml ESV(sp4-el) 40.4 ml EF(MOD-sp4) 57.3 % EF(sp4-el) 57.2 % LVAd ap2 26.3 cm\S\2 LVLd ap2 8.0 cm EDV(MOD-sp2) 69.6 ml EDV(sp2-el) 73.4 ml LVAs ap2 13.9 cm\S\2 LVLs ap2 6.4 cm ESV(MOD-sp2) 25.6 ml ESV(sp2-el) 25.8 ml EF(MOD-sp2) 63.2 % EF(sp2-el) 64.9 % LVLd %diff -6.37 % EDV(MOD-bp) 82.1 ml LVLs %diff -15.69 % ESV(MOD-bp) 33.9 ml EF(MOD-bp) 58.7 % SV(MOD-sp4) 52.1 ml SI(MOD-sp4) 23.3 ml/m\S\2 SV(MOD-sp2) 44.0 ml SI(MOD-sp2) 19.6 ml/m\S\2 SV(MOD-bp) 48.2 ml SI(MOD-bp) 21.5 ml/m\S\2 SV(sp4-el) 54.0 ml SI(sp4-el) 24.1 ml/m\S\2 SV(sp2-el) 47.6 ml SI(sp2-el) 21.2 ml/m\S\2 Doppler Measurements and Calculations MV E max bran 111.1 cm/sec MV A max bran 74.2 cm/sec MV E/A 1.5 MV dec time 0.17 sec Ao V2 max 162.1 cm/sec Ao max PG 10.5 mmHg Ao max PG (full) 0.92 mmHg DARRELL(V,A) 3.1 cm\S\2 DARRELL(V,D) 3.1 cm\S\2 LV V1 max PG 9.6 mmHg LV V1 max 154.8 cm/sec PA V2 max 130.3 cm/sec PA max PG 6.8 mmHg PA acc slope 772.4 cm/sec\S\2 PA acc time 0.10 sec TR max bran 150.7 cm/sec PA pr(Accel) 34.6 mmHg
[2017-06-27] MEDS ORDERED: WARFARIN SOD 5 MG TAB PO SCH (16:00)
--- NOTE | 2017-06-27 16:19 | Progress Note ---
Internal Med Progress Note Date of Service: Jun 27, 2017. Provider Documentation: SUBJECTIVE: has chest pain on right lower side still has blood in sputum slept fine last night eating ok no fevers no sob OBJECTIVE: Vital Signs-as noted below Exam: General-alert and awake. Not in distress ENT-normal hearing Neck-no neck masses Lungs-cta b/l no wheezing present no crackles Heart-s1 and s2 heard regular rate and rhythm no murmurs Abdomen-soft bowel sounds present non tender no distension Extremities-no erythema no edema Neuro-alert and awake moves extremities Lab data as noted below. ASSESSMENT & PLAN: PULMONARY EMBOLISM un provoked first episode no family hx of blood clots venous Doppler no DVT echo no right heart strain started on Lovenox and coumadin 'await inr to be therapeutic f/u hypercoagulable workup with pcp Hemoptysis mostly from right lower lobe infarct will monitor TOBACCO USE nicotine patch ordered discussed smoking cessation DVT PROPHYLAXIS Lovenox DISPOSITION monitor in tele to be determined Vital Signs: Date Time Temp Pulse Resp B/P (MAP) Pulse Ox O2 Delivery O2 Flow Rate FiO2 06/27/17 15:56 36.8 84 18 138/84 (102) 97 Room Air 06/27/17 15:40 Room Air 06/27/17 12:18 37.0 96 16 126/84 (98) 95 Room Air 06/27/17 12:00 Room Air 06/27/17 08:00 Room Air 06/27/17 07:35 36.7 77 16 143/75 (97) 97 Room Air 06/27/17 04:13 37.3 90 17 136/81 (99) 99 Room Air 06/27/17 04:00 Room Air 06/27/17 00:16 37.5 93 16 135/76 (95) 96 Room Air 06/27/17 00:00 Room Air 06/26/17 19:35 36.8 86 18 138/68 (91) 99 06/26/17 17:42 36.8 77 18 149/89 98 Room Air 06/26/17 17:15 90 18 143/83 98 Room Air Lab Results: Results Past 24 Hours Test 06/26/17 17:31 06/27/17 03:58 06/27/17 05:41 Range/Units Prothrombin Time 10.8 11.1 9.0-12.0 SECONDS Prothromb Time International Ratio 1.0 1.0 0.9-1.1 Activated Partial Thromboplast Time 31.3 21.0-31.0 SECONDS Partial Thromboplastin Ratio 1.2 Bedside Glucose 88 70-99 mg/dl White Blood Count 11.20 4.8-10.8 K/uL Red Blood Count 4.34 4.7-6.1 M/uL Hemoglobin 13.2 14.0-18.0 g/dL Hematocrit 39.2 42-52 % Mean Corpuscular Volume 90.3 80-100 fL Mean Corpuscular Hemoglobin 30.4 25-34 pg Mean Corpuscular Hemoglobin Concent 33.7 32-36 g/dl RDW Standard Deviation 41.6 36.4-46.3 fL RDW Coefficient of Variation 12.6 11.5-14.5 % Platelet Count 252 130-400 K/uL Mean Platelet Volume 9.6 7.4-10.4 fL
[2017-06-27] MEDS ORDERED: HYDROmorphone INJ 0.5 MG/0.5 ML SYR IV PRN (18:15)
[2017-06-27] MEDS: HYDROmorphone INJ 0.5 MG/0.5 ML SYR IV PRN (21:58)
[2017-06-27] MEDS ORDERED: COUGH DROP (SUGAR FREE) LOZ 24 LOZ/1 BOX ONE (23:15)
[2017-06-28 03:00] VITALS: BP 121/78; PULSE 77; TEMP 37; O2SAT 96
[2017-06-28] MEDS: HYDROmorphone INJ 0.5 MG/0.5 ML SYR IV PRN ×2 (03:10→06:04)
[2017-06-28] MEDS: ACETAMINOPHEN 325 MG TAB PO PRN (03:10)
[2017-06-28] MEDS ORDERED: MoRPHine SULFATE 2 MG/ML CARP IV ONE (03:30)
[2017-06-28] MEDS: ENOXAPARIN 100 MG/1ML SYR SQ SCH ×2 (06:04→16:37)
[2017-06-28] MEDS: OXYCODONE/ACETAMINOPHEN 5-325 TAB PO PRN ×3 (06:06→20:10)
[2017-06-28 07:47] LABS: BASO % 0.2 %; BASO ABS # 0.02 K/uL (0-0.2); COMPLETE YES; EOS % 1.6 %; HEMATOCRIT 36.1 % (42-52); IG% 0.2 %; LYMPH % 29.9 %; LYMPH ABS # 2.61 K/uL (1.2-3.4); MEAN CELL VOLUME 90.3 fL (80-100); MEAN CORPUSCULAR HEMOGLOBIN 31.3 pg (25-34); MEAN CORPUSCULAR HGB CONC 34.6 g/dl (32-36); MEAN PLATELET VOLUME 9.1 fL (7.4-10.4); MONO % 12.5 %; NEUT % 55.6 %; PLATELET COUNT 235 K/uL (130-400); WHITE BLOOD COUNT 8.72 K/uL (4.8-10.8)
[2017-06-28 07:59] LABS: PROTHROMBIN TIME (PATIENT) 11.1 SECONDS (9.0-12.0)
[2017-06-28 08:12] VITALS: BP 119/75; PULSE 73; TEMP 36.8; O2SAT 96
[2017-06-28] MEDS: NICOTINE 14 MG/24 HR TDSY TD SCH (10:42)
[2017-06-28 12:11] VITALS: BP 128/82; PULSE 84; TEMP 37; O2SAT 97
[2017-06-28 15:48] VITALS: BP 133/82; PULSE 76; TEMP 36.8; O2SAT 97
--- NOTE | 2017-06-28 16:07 | Progress Note ---
Internal Med Progress Note Date of Service: Jun 28, 2017. Provider Documentation: SUBJECTIVE: on and off chest pain on right lower posterior side blood in sputum improving afebrile no nausea 'no sob OBJECTIVE: Vital Signs-as noted below Exam: General-alert and awake. Not in distress ENT-normal hearing Neck-no neck masses Lungs-cta b/l no wheezing present no crackles Heart-s1 and s2 heard regular rate and rhythm no murmurs Abdomen-soft bowel sounds present non tender no distension Extremities-no erythema no edema Neuro-alert and awake moves extremities Lab data as noted below. ASSESSMENT & PLAN: PULMONARY EMBOLISM un provoked first episode no family hx of blood clots venous Doppler no DVT echo no right heart strain started on Lovenox and Coumadin 'await inr to be therapeutic f/u hypercoagulable workup with pcp continue tx Hemoptysis mostly from right lower lobe infarct incentive spirometry pain control will monitor TOBACCO USE nicotine patch ordered discussed smoking cessation DVT PROPHYLAXIS Lovenox DISPOSITION monitor in tele to be determined Vital Signs: Date Time Temp Pulse Resp B/P (MAP) Pulse Ox O2 Delivery O2 Flow Rate FiO2 06/28/17 15:48 36.8 76 20 133/82 (99) 97 Room Air 06/28/17 12:45 Room Air 06/28/17 12:11 37.0 84 16 128/82 (97) 97 Room Air 06/28/17 08:12 36.8 73 16 119/75 (90) 96 Room Air 06/28/17 08:06 Room Air 06/28/17 04:00 Room Air 06/28/17 03:00 37.0 77 19 121/78 (92) 96 Room Air 06/28/17 00:00 Room Air 06/27/17 22:56 37.1 88 19 126/76 (93) 99 Room Air 06/27/17 19:39 36.4 99 20 144/85 (104) 97 Room Air Lab Results: Results Past 24 Hours Test 06/28/17 05:34 06/28/17 07:32 Range/Units Pro-B-Type Natriuretic Peptide 48 0-450 pg/ml White Blood Count 8.72 4.8-10.8 K/uL Red Blood Count 4.00 4.7-6.1 M/uL Hemoglobin 12.5 14.0-18.0 g/dL Hematocrit 36.1 42-52 % Mean Corpuscular Volume 90.3 80-100 fL Mean Corpuscular Hemoglobin 31.3 25-34 pg Mean Corpuscular Hemoglobin Concent 34.6 32-36 g/dl Platelet Count 235 130-400 K/uL Mean Platelet Volume 9.1 7.4-10.4 fL Neutrophils (%) (Auto) 55.6 % Lymphocytes (%) (Auto) 29.9 % Monocytes (%) (Auto) 12.5 % Eosinophils (%) (Auto) 1.6 % Basophils (%) (Auto) 0.2 % Neutrophils # (Auto) 4.84 1.4-6.5 K/uL Lymphocytes # (Auto) 2.61 1.2-3.4 K/uL Monocytes # (Auto) 1.09 0.11-0.59 K/uL Eosinophils # (Auto) 0.14 0-0.5 K/uL Basophils # (Auto) 0.02 0-0.2 K/uL RDW Standard Deviation 40.2 36.4-46.3 fL RDW Coefficient of Variation 12.1 11.5-14.5 % Immature Granulocyte % (Auto) 0.2 % Immature Granulocyte # (Auto) 0.02 0.00-0.02 K/uL Prothrombin Time 11.1 9.0-12.0 SECONDS Prothromb Time International Ratio 1.0 0.9-1.1
[2017-06-28] MEDS: WARFARIN SOD 7.5 MG TAB PO SCH (16:37)
[2017-06-28 19:49] VITALS: BP 127/78; PULSE 91; TEMP 36.7; O2SAT 96
[2017-06-29] VITALS (11 sets, daily range): BP systolic 118–144; BP diastolic 67–79; PULSE 64–89; TEMP 36.2–37.1; O2SAT 93–99
[2017-06-29] MEDS: OXYCODONE/ACETAMINOPHEN 5-325 TAB PO PRN ×4 (00:09→23:44)
[2017-06-29] MEDS: HYDROmorphone INJ 0.5 MG/0.5 ML SYR IV PRN (04:56)
[2017-06-29] MEDS: ENOXAPARIN 100 MG/1ML SYR SQ SCH ×2 (05:48→17:35)
[2017-06-29 05:54] LABS: HEMATOCRIT 38.7 % (42-52); MEAN CELL VOLUME 90.2 fL (80-100); MEAN CORPUSCULAR HGB CONC 34.4 g/dl (32-36); MEAN PLATELET VOLUME 9.1 fL (7.4-10.4); PLATELET COUNT 268 K/uL (130-400); RED BLOOD COUNT 4.29 M/uL (4.7-6.1); WHITE BLOOD COUNT 8.29 K/uL (4.8-10.8)
[2017-06-29 06:05] LABS: PROTHROMBIN TIME (PATIENT) 10.7 SECONDS (9.0-12.0)
[2017-06-29 06:29] LABS: CREATININE 0.7 mg/dl (0.60-1.40)
[2017-06-29] MEDS: NICOTINE 14 MG/24 HR TDSY TD SCH (08:46)
--- NOTE | 2017-06-29 15:03 | Progress Note ---
Internal Med Progress Note Date of Service: Jun 29, 2017. Provider Documentation: SUBJECTIVE: Still has blood in sputum chest pains are better denies sob afebrile resting comfortably eating fine OBJECTIVE: Vital Signs-as noted below Exam: General-alert and awake. Not in distress ENT-normal hearing Neck-no neck masses Lungs-cta b/l no wheezing present no crackles Heart-s1 and s2 heard regular rate and rhythm no murmurs Abdomen-soft bowel sounds present non tender no distension Extremities-no erythema no edema Neuro-alert and awake moves extremities Lab data as noted below. ASSESSMENT & PLAN: 26YM PRESENTS WITH CHEST PAIN AND HEMOPTYSIS AND FOUND TO HAVE B/L LOWER LOBE AUTE PE AND EXTENSIVE POSTERIOR BASAL RIGHT LOWER LOBE INFARCT. NEEDS PCP, COUMADIN CLINIC AND HEMATOLOGY FOLLOWUP. PULMONARY EMBOLISM un provoked first episode no family hx of blood clots venous Doppler no DVT echo no right heart strain started on Lovenox and Coumadin Coumadin dose increased to 7.5mg daily 'await inr to be therapeutic f/u hypercoagulable workup with pcp needs to follow up with heme/onco with pcp referral Patient agrees to followup with [facility] PCP. AWAIT INR TO CLIMB BEFORE D./C ON LOVENOX BRIDGE Hemoptysis mostly from right lower lobe infarct incentive spirometry pain control will monitor TOBACCO USE nicotine patch ordered discussed smoking cessation DVT PROPHYLAXIS Lovenox DISPOSITION monitor in tele possible d/c in 1-2 days with Lovenox bridge Vital Signs: Date Time Temp Pulse Resp B/P (MAP) Pulse Ox O2 Delivery O2 Flow Rate FiO2 06/29/17 15:22 36.2 89 20 144/75 (98) 93 Room Air 06/29/17 12:35 98 Room Air 06/29/17 10:59 36.7 78 18 119/78 (92) 98 Room Air 06/29/17 09:30 Room Air 06/29/17 08:00 Room Air 06/29/17 07:36 36.9 66 18 124/79 (94) 97 Room Air 06/29/17 07:35 36.6 68 16 121/72 (88) 96 Room Air 06/29/17 04:28 Room Air 06/29/17 03:59 37.1 87 17 118/70 (86) 97 Room Air 06/29/17 00:09 36.6 64 16 136/67 (90) 99 Room Air 06/29/17 00:00 Room Air 06/28/17 20:00 Room Air 06/28/17 19:49 36.7 91 20 127/78 (94) 96 Room Air Lab Results: Results Past 24 Hours Test 06/29/17 05:30 Range/Units White Blood Count 8.29 4.8-10.8 K/uL Red Blood Count 4.29 4.7-6.1 M/uL Hemoglobin 13.3 14.0-18.0 g/dL Hematocrit 38.7 42-52 % Mean Corpuscular Volume 90.2 80-100 fL Mean Corpuscular Hemoglobin 31.0 25-34 pg Mean Corpuscular Hemoglobin Concent 34.4 32-36 g/dl RDW Standard Deviation 40.1 36.4-46.3 fL RDW Coefficient of Variation 12.3 11.5-14.5 % Platelet Count 268 130-400 K/uL Mean Platelet Volume 9.1 7.4-10.4 fL Prothrombin Time 10.7 9.0-12.0 SECONDS Prothromb Time International Ratio 1.0 0.9-1.1 Creatinine 0.70 0.60-1.40 mg/dl Est Creatinine Clear Calc Drug Dose 194.2 ml/min Estimated GFR () 149.9 Estimated GFR (Non- 129.3
[2017-06-29] MEDS: WARFARIN SOD 7.5 MG TAB PO SCH (15:54)
[2017-06-30] VITALS (10 sets, daily range): BP systolic 112–132; BP diastolic 71–80; PULSE 68–84; TEMP 36.4–37.2; O2SAT 95–98
[2017-06-30] MEDS: ENOXAPARIN 100 MG/1ML SYR SQ SCH ×2 (05:30→18:01)
[2017-06-30] MEDS: OXYCODONE/ACETAMINOPHEN 5-325 TAB PO PRN ×3 (05:34→19:29)
[2017-06-30 07:12] LABS: INR 1.2 (0.9-1.1); PROTHROMBIN TIME (PATIENT) 12.5 SECONDS (9.0-12.0)
[2017-06-30] MEDS: NICOTINE 14 MG/24 HR TDSY TD SCH (08:35)
--- NOTE | 2017-06-30 14:30 | Progress Note ---
Internal Med Progress Note Date of Service: Jun 30, 2017. Provider Documentation: SUBJECTIVE: Patient is ambulatory. Breathing on room air Not in distress. However continues to have blood tinged sputum with coughing. No telemetry recorded events overnight OBJECTIVE: General-alert and awake. Not in distress ENT-normal hearing Neck-no neck masses Lungs-cta b/l no wheezing present no crackles Heart-s1 and s2 heard regular rate and rhythm no murmurs Abdomen-soft bowel sounds present non tender no distension Extremities-no erythema no edema Neuro-alert and awake, moves extremities ASSESSMENT & PLAN: Unprovoked pulmonary embolism in young adult patient CTA on 06/26/17 1. Findings consistent with acute pulmonary emboli in segmental and subsegmental pulmonary arteries of the bilateral lower lobes. 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 Limited atelectasis in the left lower lobe. 2. Prominent mediastinal and bilateral hilar lymph nodes. These may be reactive , however, 3-6 month follow-up CT to be considered as clinically indicated. Ultrasound lower extremities 06/26/17: no DVT Labs for Protein C / Protein S / Factor V Leiden were sent on 06/26/17 and results pending TTE 06/27/17 normal results Left Ventricle The left ventricle is normal in size. There is normal left ventricular wall thickness. Ejection Fraction = 60-65%. Left ventricular systolic function is normal. Right Ventricle The right ventricle is normal size. The right ventricular systolic function is normal. Atria The left atrial size is normal. Right atrial size is normal. The interatrial septum is intact with no evidence for an atrial septal defect. Mitral Valve The mitral valve anatomy is normal. Significant mitral regurgitation is absent. Tricuspid Valve The tricuspid valve is not well visualized, but is grossly normal. Significant tricuspid regurgitation is absent. Aortic Valve The aortic valve is trileaflet. Aortic stenosis is absent. No aortic regurgitation is present. Great Vessels The aortic root and proximal ascending aorta are normal sized. Pericardium/Pleural There is no pericardial effusion DVT PROPHYLAXIS in a patient with pulmonary embolism Full dose anticoagulation with Lovenox 100 mg q12hrs Coumadin with initial dosing 5 mg Coumadin qhs on 06/26/17 however because INR subtherapeutic patient was started on Coumadin 7.5 mg on 06/28/17. Continue this coumadin dose and monitor INR Hemoptysis mostly from right lower lobe infarct incentive spirometry, pain control TOBACCO USE nicotine patch ordered discussed smoking cessation Telemetry discontinued on 06/30/17 DISPOSITION Discharge home once INR is therapeutic on coumadin, will need anticoagulation follow up, will need primary acre physician follow up Vital Signs: Date Time Temp Pulse Resp B/P (MAP) Pulse Ox O2 Delivery O2 Flow Rate FiO2 06/30/17 11:44 36.6 72 18 117/71 (86) 96 06/30/17 11:20 36.7 81 18 95 06/30/17 10:53 36.7 81 18 95 06/30/17 10:49 36.7 81 18 117/73 (88) 95 Room Air 06/30/17 08:00 Room Air 06/30/17 07:35 37.2 72 18 112/72 (85) 96 Room Air 06/30/17 04:00 98 Room Air 06/30/17 03:58 36.8 68 20 114/75 (88) 98 06/30/17 00:01 36.9 84 20 130/78 (95) 96 06/29/17 23:59 97 Room Air 06/29/17 20:00 97 Room Air 06/29/17 19:35 36.9 72 18 124/75 (91) 97 Room Air 06/29/17 16:15 93 Room Air 06/29/17 15:22 36.2 89 20 144/75 (98) 93 Room Air Lab Results: Results Past 24 Hours Test 06/30/17 06:40 Range/Units Prothrombin Time 12.5 9.0-12.0 SECONDS Prothromb Time International Ratio 1.2 0.9-1.1
[2017-06-30] MEDS: WARFARIN SOD 7.5 MG TAB PO SCH (16:12)
[2017-07-01] MEDS: OXYCODONE/ACETAMINOPHEN 5-325 TAB PO PRN ×3 (05:27→23:45)
[2017-07-01] MEDS: ENOXAPARIN 100 MG/1ML SYR SQ SCH ×2 (05:29→17:56)
[2017-07-01 06:39] LABS: INR 1.1 (0.9-1.1); PROTHROMBIN TIME (PATIENT) 12.3 SECONDS (9.0-12.0)
[2017-07-01 08:07] VITALS: BP 124/74; PULSE 69; TEMP 36.8; O2SAT 97
[2017-07-01] MEDS: NICOTINE 14 MG/24 HR TDSY TD SCH (08:14)
[2017-07-01 15:32] VITALS: BP 125/78; PULSE 73; TEMP 36.5; O2SAT 94
[2017-07-01] MEDS: WARFARIN SOD 10 MG TAB PO SCH (15:47)
--- NOTE | 2017-07-01 15:59 | Progress Note ---
Internal Med Progress Note Date of Service: Jul 01, 2017. Provider Documentation: SUBJECTIVE: Patient is ambulatory. Breathing on room air. Not in distress. However continues to have blood tinged sputum with coughing that is improving. INR still subtherapeutic as 1.1 while patient has been receiving oral coumadin OBJECTIVE: General-alert and awake. Not in distress ENT-normal hearing Neck-no neck masses Lungs-cta b/l no wheezing present no crackles Heart-s1 and s2 heard regular rate and rhythm no murmurs Abdomen-soft bowel sounds present non tender no distension Extremities-no erythema no edema Neuro-alert and awake, moves extremities ASSESSMENT & PLAN: Unprovoked pulmonary embolism in young adult patient CTA on 06/26/17 1. Findings consistent with acute pulmonary emboli in segmental and subsegmental pulmonary arteries of the bilateral lower lobes. 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 Limited atelectasis in the left lower lobe. 2. Prominent mediastinal and bilateral hilar lymph nodes. These may be reactive , however, 3-6 month follow-up CT to be considered as clinically indicated. Ultrasound lower extremities 06/26/17: no DVT Labs for Protein C / Protein S / Factor V Leiden were sent on 06/26/17 and results pending TTE 06/27/17 normal results Left Ventricle The left ventricle is normal in size. There is normal left ventricular wall thickness. Ejection Fraction = 60-65%. Left ventricular systolic function is normal. Right Ventricle The right ventricle is normal size. The right ventricular systolic function is normal. Atria The left atrial size is normal. Right atrial size is normal. The interatrial septum is intact with no evidence for an atrial septal defect. Mitral Valve The mitral valve anatomy is normal. Significant mitral regurgitation is absent. Tricuspid Valve The tricuspid valve is not well visualized, but is grossly normal. Significant tricuspid regurgitation is absent. Aortic Valve The aortic valve is trileaflet. Aortic stenosis is absent. No aortic regurgitation is present. Great Vessels The aortic root and proximal ascending aorta are normal sized. Pericardium/Pleural There is no pericardial effusion DVT PROPHYLAXIS in a patient with pulmonary embolism Full dose anticoagulation with Lovenox 100 mg q12hrs Coumadin with initial dosing 5 mg Coumadin qhs on 06/26/17 however because INR subtherapeutic patient was started on Coumadin 7.5 mg on 06/28/17. INR still subtherapeutic on 07/01/17 , will increase coumadin dose to 10 mg daily Hemoptysis mostly from right lower lobe infarct incentive spirometry, pain control TOBACCO USE nicotine patch ordered discussed smoking cessation Telemetry discontinued on 06/30/17 DISPOSITION Discharge home once INR is therapeutic on coumadin, will need anticoagulation follow up, will need primary care physician follow up Vital Signs: Date Time Temp Pulse Resp B/P (MAP) Pulse Ox O2 Delivery O2 Flow Rate FiO2 07/01/17 15:32 36.5 73 18 125/78 (94) 94 Room Air 07/01/17 08:07 36.8 69 18 124/74 (91) 97 Room Air 07/01/17 08:00 Room Air 07/01/17 00:35 Room Air 06/30/17 23:20 36.8 73 18 127/80 (96) 97 Room Air 06/30/17 20:04 Room Air Lab Results: Results Past 24 Hours Test 07/01/17 05:50 Range/Units Prothrombin Time 12.3 9.0-12.0 SECONDS Prothromb Time International Ratio 1.1 0.9-1.1
[2017-07-01 17:27] LABS: PROTEIN C ACTIVITY** TC 1777X 108 % (70-180); PROTEIN S ACT(FUNCT)**1779X 94 % (70-150)
[2017-07-01 23:53] VITALS: BP 127/76; PULSE 93; TEMP 36.6; O2SAT 96
[2017-07-01 23:56] VITALS: O2SAT 96
[2017-07-02] MEDS: ENOXAPARIN 100 MG/1ML SYR SQ SCH ×2 (06:18→18:16)
[2017-07-02] MEDS: OXYCODONE/ACETAMINOPHEN 5-325 TAB PO PRN ×2 (06:18→14:14)
[2017-07-02 06:39] LABS: HEMATOCRIT 41.5 % (42-52); MEAN CELL VOLUME 89.4 fL (80-100); MEAN CORPUSCULAR HEMOGLOBIN 30.2 pg (25-34); MEAN CORPUSCULAR HGB CONC 33.7 g/dl (32-36); MEAN PLATELET VOLUME 9.2 fL (7.4-10.4); PLATELET COUNT 345 K/uL (130-400); RED BLOOD COUNT 4.64 M/uL (4.7-6.1); WHITE BLOOD COUNT 7.36 K/uL (4.8-10.8)
[2017-07-02 06:53] LABS: INR 1.2 (0.9-1.1); PROTHROMBIN TIME (PATIENT) 12.5 SECONDS (9.0-12.0)
[2017-07-02 07:09] LABS: CREATININE 0.77 mg/dl (0.60-1.40)
[2017-07-02 07:31] VITALS: BP 119/75; PULSE 69; TEMP 36.5; O2SAT 95
[2017-07-02] MEDS: NICOTINE 14 MG/24 HR TDSY TD SCH (08:32)
--- NOTE | 2017-07-02 14:30 | Progress Note ---
Internal Med Progress Note Date of Service: Jul 02, 2017. Provider Documentation: SUBJECTIVE: Patient is ambulatory. Breathing on room air. Not in distress. Ambulatory. INR still subtherapeutic as 1.2 while patient has been on increased dose of oral coumadin OBJECTIVE: General-alert and awake. Not in distress ENT-normal hearing Neck-no JVD, midline trachea Lungs-cta b/l no wheezing present no crackles Heart-s1 and s2 heard regular rate and rhythm no murmurs Abdomen-soft bowel sounds present non tender no distension Extremities-no erythema no edema Neuro-alert and awake, moves extremities ASSESSMENT & PLAN: Unprovoked pulmonary embolism in young adult patient CTA on 06/26/17 1. Findings consistent with acute pulmonary emboli in segmental and subsegmental pulmonary arteries of the bilateral lower lobes. 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 Limited atelectasis in the left lower lobe. 2. Prominent mediastinal and bilateral hilar lymph nodes. These may be reactive , however, 3-6 month follow-up CT to be considered as clinically indicated. Ultrasound lower extremities 06/26/17: no DVT Labs Protein C Activity 108 % of normal Protein S Activity 94 Factor V Leiden (R506Q) Mutation NOT DETECTED The [id number] Mutation in the Prothrombin/Factor II gene is NOT DETECTED TTE 06/27/17 normal results Left Ventricle The left ventricle is normal in size. There is normal left ventricular wall thickness. Ejection Fraction = 60-65%. Left ventricular systolic function is normal. Right Ventricle The right ventricle is normal size. The right ventricular systolic function is normal. Atria The left atrial size is normal. Right atrial size is normal. The interatrial septum is intact with no evidence for an atrial septal defect. Mitral Valve The mitral valve anatomy is normal. Significant mitral regurgitation is absent. Tricuspid Valve The tricuspid valve is not well visualized, but is grossly normal. Significant tricuspid regurgitation is absent. Aortic Valve The aortic valve is trileaflet. Aortic stenosis is absent. No aortic regurgitation is present. Great Vessels The aortic root and proximal ascending aorta are normal sized. Pericardium/Pleural There is no pericardial effusion DVT PROPHYLAXIS in a patient with pulmonary embolism Full dose anticoagulation with Lovenox 100 mg q12hrs Coumadin with initial dosing 5 mg Coumadin qhs on 06/26/17 however because INR subtherapeutic patient was started on Coumadin 7.5 mg on 06/28/17. INR still subtherapeutic on 07/01/17 , will increase coumadin dose to 10 mg daily Hemoptysis mostly from right lower lobe infarct incentive spirometry, pain control TOBACCO USE nicotine patch ordered discussed smoking cessation Telemetry discontinued on 06/30/17 DISPOSITION Discharge home once INR is therapeutic on coumadin, will need anticoagulation follow up, will need primary care physician follow up Vital Signs: Date Time Temp Pulse Resp B/P (MAP) Pulse Ox O2 Delivery O2 Flow Rate FiO2 07/02/17 08:00 Room Air 07/02/17 07:31 36.5 69 18 119/75 (90) 95 Room Air 07/01/17 23:56 96 Room Air 07/01/17 23:53 36.6 93 20 127/76 (93) 96 Room Air 07/01/17 16:53 Room Air 07/01/17 15:32 36.5 73 18 125/78 (94) 94 Room Air Lab Results: Results Past 24 Hours Test 07/02/17 06:05 Range/Units White Blood Count 7.36 4.8-10.8 K/uL Red Blood Count 4.64 4.7-6.1 M/uL Hemoglobin 14.0 14.0-18.0 g/dL Hematocrit 41.5 42-52 % Mean Corpuscular Volume 89.4 80-100 fL Mean Corpuscular Hemoglobin 30.2 25-34 pg Mean Corpuscular Hemoglobin Concent 33.7 32-36 g/dl RDW Standard Deviation 38.5 36.4-46.3 fL RDW Coefficient of Variation 11.9 11.5-14.5 % Platelet Count 345 130-400 K/uL Mean Platelet Volume 9.2 7.4-10.4 fL Prothrombin Time 12.5 9.0-12.0 SECONDS Prothromb Time International Ratio 1.2 0.9-1.1 Creatinine 0.77 0.60-1.40 mg/dl Est Creatinine Clear Calc Drug Dose 174.7 ml/min Estimated GFR () 144.1 Estimated GFR (Non- 124.4
[2017-07-02] MEDS: WARFARIN SOD 10 MG TAB PO SCH (15:47)
[2017-07-02 15:50] VITALS: BP 123/85; PULSE 84; TEMP 36.7; O2SAT 96
[2017-07-03 00:18] VITALS: BP 132/72; PULSE 85; TEMP 36.8; O2SAT 94
[2017-07-03] MEDS: ENOXAPARIN 100 MG/1ML SYR SQ SCH (06:22)
[2017-07-03 07:07] LABS: HEMATOCRIT 38.8 % (42-52); MEAN CELL VOLUME 89.6 fL (80-100); MEAN CORPUSCULAR HEMOGLOBIN 32.3 pg (25-34); MEAN CORPUSCULAR HGB CONC 36.1 g/dl (32-36); MEAN PLATELET VOLUME 8.8 fL (7.4-10.4); PLATELET COUNT 322 K/uL (130-400); RED BLOOD COUNT 4.33 M/uL (4.7-6.1)
[2017-07-03 07:13] LABS: INR 1.3 (0.9-1.1); PROTHROMBIN TIME (PATIENT) 13.8 SECONDS (9.0-12.0)
[2017-07-03 07:20] VITALS: BP 109/65; PULSE 72; TEMP 36.5; O2SAT 96
[2017-07-03] MEDS: NICOTINE 14 MG/24 HR TDSY TD SCH (07:36)
[2017-07-03 07:53] LABS: CREATININE 0.8 mg/dl (0.60-1.40)
--- NOTE | 2017-07-03 12:32 | Progress Note ---
Internal Med Progress Note Date of Service: Jul 03, 2017. Provider Documentation: SUBJECTIVE: Patient is ambulatory. Breathing on room air. Not in distress. Ambulatory. INR still subtherapeutic while on Lovenox and coumadin. Continues to have hemoptysis which may take more time before resolving due to history of pulmonary embolism. Case management was able to obtain low cost drug plans for Xarelto today. Patient will be discharged with Xarelto today with discharge follow ups. Patient understands the plan OBJECTIVE: General-alert and awake. Not in distress ENT-normal hearing Neck-no JVD, midline trachea Lungs-cta b/l no wheezing present no crackles Heart-s1 and s2 heard regular rate and rhythm no murmurs Abdomen-soft bowel sounds present non tender no distension Extremities-no erythema no edema Neuro-alert and awake, moves extremities ASSESSMENT & PLAN: Unprovoked pulmonary embolism in young adult patient CTA on 06/26/17 1. Findings consistent with acute pulmonary emboli in segmental and subsegmental pulmonary arteries of the bilateral lower lobes. 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 Limited atelectasis in the left lower lobe. 2. Prominent mediastinal and bilateral hilar lymph nodes. These may be reactive , however, 3-6 month follow-up CT to be considered as clinically indicated. Ultrasound lower extremities 06/26/17: no DVT Labs Protein C Activity 108 % of normal Protein S Activity 94 Factor V Leiden (R506Q) Mutation NOT DETECTED The [id number] Mutation in the Prothrombin/Factor II gene is NOT DETECTED TTE 06/27/17 normal results Left Ventricle The left ventricle is normal in size. There is normal left ventricular wall thickness. Ejection Fraction = 60-65%. Left ventricular systolic function is normal. Right Ventricle The right ventricle is normal size. The right ventricular systolic function is normal. Atria The left atrial size is normal. Right atrial size is normal. The interatrial septum is intact with no evidence for an atrial septal defect. Mitral Valve The mitral valve anatomy is normal. Significant mitral regurgitation is absent. Tricuspid Valve The tricuspid valve is not well visualized, but is grossly normal. Significant tricuspid regurgitation is absent. Aortic Valve The aortic valve is trileaflet. Aortic stenosis is absent. No aortic regurgitation is present. Great Vessels The aortic root and proximal ascending aorta are normal sized. Pericardium/Pleural There is no pericardial effusion DVT PROPHYLAXIS in a patient with pulmonary embolism During this hospital course, patient was on full dose anticoagulation with Lovenox 100 mg q12hrs Coumadin with initial dosing 5 mg Coumadin qhs on however because INR subtherapeutic patient was started on Coumadin 7.5 mg on 06/28/17. INR still subtherapeutic on 07/01/17, will increase coumadin dose to 10 mg daily. Still subtherapeutic INR 1.3 on 07/03/17. Case management was able to obtain low cost drug plans for Xarelto on 07/03/17. Patient will be discharged with Xarelto. Initial Xarelto dosing is 15 mg twice daily with food for 21 days followed by 20 mg once daily with food. Patient has 2 follow up appointments at [facility] Address: [address] [place] [address] , [place] [address] , appointment re-scheduling can also be made with Dr. Dutta, primary care doctor on Thursday07/06/17 at 2:45 PM (Use Entrance # 2) Anticoagulation Clinic at 4:15 PM Patient also has been having hemoptysis from right lower lobe infarct for which inpatient treatment has been supportive care besides being treated for pulmonary embolism, Primary care physician can make referral to pulmonary clinic if needed. Vital Signs: Date Time Temp Pulse Resp B/P (MAP) Pulse Ox O2 Delivery O2 Flow Rate FiO2 07/03/17 08:00 Room Air 07/03/17 07:20 36.5 72 16 109/65 (80) 96 Room Air 07/03/17 00:18 36.8 85 16 132/72 (92) 94 Room Air 07/03/17 00:00 Room Air 07/02/17 16:00 Room Air 07/02/17 15:50 36.7 84 18 123/85 (98) 96 Room Air Lab Results: Results Past 24 Hours Test 07/03/17 06:48 Range/Units White Blood Count 8.20 4.8-10.8 K/uL Red Blood Count 4.33 4.7-6.1 M/uL Hemoglobin 14.0 14.0-18.0 g/dL Hematocrit 38.8 42-52 % Mean Corpuscular Volume 89.6 80-100 fL Mean Corpuscular Hemoglobin 32.3 25-34 pg Mean Corpuscular Hemoglobin Concent 36.1 32-36 g/dl RDW Standard Deviation 38.8 36.4-46.3 fL RDW Coefficient of Variation 11.9 11.5-14.5 % Platelet Count 322 130-400 K/uL Mean Platelet Volume 8.8 7.4-10.4 fL Prothrombin Time 13.8 9.0-12.0 SECONDS Prothromb Time International Ratio 1.3 0.9-1.1 Creatinine 0.80 0.60-1.40 mg/dl Est Creatinine Clear Calc Drug Dose 168.1 ml/min Estimated GFR () 141.9 Estimated GFR (Non- 122.4
[2017-07-03] MEDS ORDERED: XRL10 OR (12:37)
[2017-07-03] MEDS ORDERED: NICO14DI5 TD (12:37)
[2017-07-03] MEDS ORDERED: XRL10 PO (12:39)
--- NOTE | 2017-07-03 12:43 | Discharge Instructions ---
Discharge Instructions Date of Service Jul 03, 2017. Admission Reason for Admission: Pulmonary Embolism, Pulmonary Infarction VTE Date & Time Date of VTE Diagnosis: Jun 26, 2017 Time of VTE Diagnosis: 14:35 Discharge Goals Goal(s): Decrease discomfort, Improve disease control Activity Recommendations Activity Limitations: resume your previous activity . Instructions / Follow-Up Instructions / Follow-Up Medication Instructions: Your condition is typically treated with an anticoagulant. Anticoagulants will thin your blood to help prevent new clots. * You should take her medication exactly as directed. * Never skip a dose. * Never take a double dose. If you miss a dose, take it as soon as you remember. Call your Primary Care doctor if you experience any of the following: * Swelling or Pain in your leg * Sudden, continuous pain deep in a muscle * Pain that worsens when you are active or when you stand still for a long time * Chest Pain * Sudden Shortness of Breath * Rapid or pounding heart beat * Fainting * Dizziness * Cough with blood or bloody sputum * Sweating more than normal * Bruises * Heavy or uncontrolled bleeding * Blood in your urine, stool or vomit * Black or tarry stools Caring for Your Self at Home: * Avoid sitting, standing or lying down for long periods without moving your legs and feet * When traveling by car, stop to get out and move around at least once every 3 hours * On long airplane, train or bus rides, get up and move around when possible * If you can't get up, wiggle your toes and tighten your calves to keep your blood moving Follow Up: It is important for you to keep your follow up appointments with your medical provider. Further Instructions Case management was able to obtain low cost drug plans for Xarelto on 07/03/17. Patient will be discharged with Xarelto. Initial Xarelto dosing is 15 mg twice daily with food for 21 days followed by 20 mg once daily with food. Patient has 2 follow up appointments at [facility] Address: [address], [place] [address] , appointment re-scheduling can also be made with Dr. Dutta, primary care doctor on Thursday07/06/17 at 2:45 PM (Use Entrance # 2) Anticoagulation Clinic at 4:15 PM Patient also has been having hemoptysis from right lower lobe infarct for which inpatient treatment has been supportive care besides being treated for pulmonary embolism, Primary care physician can make referral to pulmonary clinic if needed. Current Hospital Diet Patient's current hospital diet: Regular Diet Discharge Diet Recommended Diet: Regular Diet Pending Studies Studies pending at discharge: no Laboratory Results 07/03/17 06:48 06/26/17 14:57 07/03/17 06:48 Test 06/26/17 14:57 06/26/17 17:31 06/27/17 03:58 06/28/17 05:34 Anion Gap 7.0 mmol/L (3-11) BUN/Creatinine Ratio 15.1 (10-20) Calcium Level 9.5 mg/dl (8.5-10.1) Troponin I < 0.015 ng/ml (0-0.045) Activated Partial Thromboplast Time 31.3 SECONDS (21.0-31.0) Partial Thromboplastin Ratio 1.2 Protein C Activity 108 % (70-180) Protein S Activity 94 % (70-150) Factor V Leiden Mutation see note Factor V Leiden Interpretation see note Factor V Leiden Reviewed By see note Prothrombin Gene Mutation see note Prothrombin Gene Mutation Comment see note Prothrombin Mutation Reviewed By see note Homocysteine 9.6 UMOL/L (<11.4) Bedside Glucose 88 mg/dl (70-99) Pro-B-Type Natriuretic Peptide 48 pg/ml (0-450) Test 06/28/17 07:32 07/03/17 06:48 Immature Granulocyte % (Auto) 0.2 % White Blood Count 8.72 K/uL (4.8-10.8) Red Blood Count 4.00 M/uL (4.7-6.1) 4.33 M/uL (4.7-6.1) Hemoglobin 12.5 g/dL (14.0-18.0) Hematocrit 36.1 % (42-52) Mean Corpuscular Volume 90.3 fL (80-100) 89.6 fL (80-100) Mean Corpuscular Hemoglobin 31.3 pg (25-34) 32.3 pg (25-34) Mean Corpuscular Hemoglobin Concent 34.6 g/dl (32-36) 36.1 g/dl (32-36) Platelet Count 235 K/uL (130-400) Mean Platelet Volume 9.1 fL (7.4-10.4) 8.8 fL (7.4-10.4) Neutrophils (%) (Auto) 55.6 % Lymphocytes (%) (Auto) 29.9 % Monocytes (%) (Auto) 12.5 % Eosinophils (%) (Auto) 1.6 % Basophils (%) (Auto) 0.2 % Neutrophils # (Auto) 4.84 K/uL (1.4-6.5) Lymphocytes # (Auto) 2.61 K/uL (1.2-3.4) Monocytes # (Auto) 1.09 K/uL (0.11-0.59) Eosinophils # (Auto) 0.14 K/uL (0-0.5) Basophils # (Auto) 0.02 K/uL (0-0.2) Immature Granulocyte # (Auto) 0.02 K/uL (0.00-0.02) RDW Standard Deviation 38.8 fL (36.4-46.3) RDW Coefficient of Variation 11.9 % (11.5-14.5) Prothrombin Time 13.8 SECONDS (9.0-12.0) Prothromb Time International Ratio 1.3 (0.9-1.1) Est Creatinine Clear Calc Drug Dose 168.1 ml/min Estimated GFR () 141.9 Estimated GFR (Non- 122.4 Medical Emergencies . Who to Call and When: Medical Emergencies: If at any time you feel your situation is an emergency, please call 911 immediately. . Non-Emergent Contact Non-Emergency issues call your: Primary Care Provider . . "Provider Documentation" section prepared by Román Gu. . VTE Core Measure Inpt VTE Proph given/why not?: Enoxaparin (Lovenox)SQ, Warfarin (Coumadin)
[2017-07-03 12:46] VITALS: BP 109/65; PULSE 72; TEMP 36.5; O2SAT 96
--- NOTE | 2017-07-03 12:46 | Discharge Summary ---
Discharge Summary Date of Service Jul 03, 2017. Discharge Summary Admission Date: Jun 26, 2017 at 16:28 Discharge Date: Jul 03, 2017 Discharge Disposition: Home Principal Diagnosis: Pulmonary embolism, Hemoptysis Medication Reconciliation New Medications: Rivaroxaban (Xarelto) 10 Mg Tab 15 MG OR BID for 21 Days, #63 TABS Rivaroxaban (Xarelto) 10 Mg Tab 2 TAB PO DAILY for 30 Days, #60 TAB 1 Refill Nicotine (Nicoderm Cq 14MG Patch) 14 Mg/24 Hr Dis 1 PATCH TD QAM for 30 Days, #30 UNITS Continued Medications: Melatonin ( Melatonin) 3 Mg Tab 1 TAB PO HS PRN for Sleep, TAB Multivitamin (Multivitamin) Tab 1 TAB PO DAILY, TAB Admission Information HPI (per Admitting provider): Pt is 26 yo M who presents with c/o R sided pleuritic CP, SOB x 3 days. Pt was seen in ER 2 days ago and had CXR showed right basilar opacity and was discharged home on prednisone. Pt states yesterday with mild rhinorrhea. Reports today started with hemoptysis described as clotted blood, and pleuritic CP and SOB continued so returned to ER today. Pt had CT angio showing PE bilateral lower lobes and extensive RLL infarct. Limited atelectasis in LLL. HGB down to 13 from 16 two days ago. Negative Troponin. Smokes 1/2 ppd x 12 years and states has chronic cough. Denies recent travel, prolonged immobilization, recent surgery, injury/trauma or hx DVT or PE in past. Denies FH of DVT/PE or clotting disorder. Denies hx asthma. Denies fever/chills, diaphoresis, N/V/D/C, WELLS, dizziness, syncope, vision changes, neck pain, palpitations, sore throat, choking, otalgia, abdominal pain, paresthesias, weakness, extremity weakness, extremity edema or erythema, extremity pain, rashes, or urinary symptoms. Pt states does not have PCP. Pt reports does not have medical insurance. Physical Exam (per Admitting): General Appearance: WD/WN, no apparent distress Head: normocephalic, atraumatic Eyes: normal inspection, PERRL, EOMI ENT: normal ENT inspection, hearing grossly normal, TMs normal, pharynx normal Neck: supple, no adenopathy, no JVD, trachea midline Respiratory/Chest: chest non-tender, no respiratory distress, no accessory muscle use, + decreased breath sounds (RLL), + pertinent finding (no wheezing/ rhonchi/rales) Cardiovascular: regular rate, rhythm, no murmur Abdomen/GI: normal bowel sounds, non tender, soft Back: normal inspection, normal range of motion Extremities/Musculoskelatal: normal inspection, no calf tenderness, normal capillary refill, no pedal edema, normal range of motion, non-tender Neurologic/Psych: alert, normal mood/affect, oriented x 3 Skin: normal color, warm/dry, no rash Hospital Course Unprovoked pulmonary embolism in young adult patient CTA on 06/26/17 1. Findings consistent with acute pulmonary emboli in segmental and subsegmental pulmonary arteries of the bilateral lower lobes. 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 Limited atelectasis in the left lower lobe. 2. Prominent mediastinal and bilateral hilar lymph nodes. These may be reactive , however, 3-6 month follow-up CT to be considered as clinically indicated. Ultrasound lower extremities 06/26/17: no DVT Labs Protein C Activity 108 % of normal Protein S Activity 94 Factor V Leiden (R506Q) Mutation NOT DETECTED The [id number] Mutation in the Prothrombin/Factor II gene is NOT DETECTED TTE 06/27/17 normal results Left Ventricle The left ventricle is normal in size. There is normal left ventricular wall thickness. Ejection Fraction = 60-65%. Left ventricular systolic function is normal. Right Ventricle The right ventricle is normal size. The right ventricular systolic function is normal. Atria The left atrial size is normal. Right atrial size is normal. The interatrial septum is intact with no evidence for an atrial septal defect. Mitral Valve The mitral valve anatomy is normal. Significant mitral regurgitation is absent. Tricuspid Valve The tricuspid valve is not well visualized, but is grossly normal. Significant tricuspid regurgitation is absent. Aortic Valve The aortic valve is trileaflet. Aortic stenosis is absent. No aortic regurgitation is present. Great Vessels The aortic root and proximal ascending aorta are normal sized. Pericardium/Pleural There is no pericardial effusion DVT PROPHYLAXIS in a patient with pulmonary embolism During this hospital course, patient was on full dose anticoagulation with Lovenox 100 mg q12hrs Coumadin with initial dosing 5 mg Coumadin qhs on however because INR subtherapeutic patient was started on Coumadin 7.5 mg on 06/28/17. INR still subtherapeutic on 07/01/17, will increase coumadin dose to 10 mg daily. Still subtherapeutic INR 1.3 on 07/03/17. Case management was able to obtain low cost drug plans for Xarelto on 07/03/17. Patient will be discharged with Xarelto. Initial Xarelto dosing is 15 mg twice daily with food for 21 days followed by 20 mg once daily with food. Patient has 2 follow up appointments at [facility] Address: [facility] [address], [place] [address] , appointment re-scheduling can also be made with [phone] Dr. Dutta, primary care doctor on Thursday07/06/17 at 2:45 PM (Use Entrance # 2) Anticoagulation Clinic at 4:15 PM Patient also has been having hemoptysis from right lower lobe infarct for which inpatient treatment has been supportive care besides being treated for pulmonary embolism, Primary care physician can make referral to pulmonary clinic if needed. Total time spent on discharge = 60 minutes This includes examination of the patient, discharge planning, medication reconciliation, and communication with other providers. Discharge Instructions Instructions / Follow-Up Medication Instructions: Your condition is typically treated with an anticoagulant. Anticoagulants will thin your blood to help prevent new clots. You should take her medication exactly as directed. Never skip a dose. Never take a double dose. If you miss a dose, take it as soon as you remember. Call your Primary Care doctor if you experience any of the following: Swelling or Pain in your leg Sudden, continuous pain deep in a muscle Pain that worsens when you are active or when you stand still for a long time Chest Pain Sudden Shortness of Breath Rapid or pounding heart beat Fainting Dizziness Cough with blood or bloody sputum Sweating more than normal Bruises Heavy or uncontrolled bleeding Blood in your urine, stool or vomit Black or tarry stools Caring for Your Self at Home: Avoid sitting, standing or lying down for long periods without moving your legs and feet When traveling by car, stop to get out and move around at least once every 3 hours On long airplane, train or bus rides, get up and move around when possible If you can't get up, wiggle your toes and tighten your calves to keep your blood moving Follow Up: It is important for you to keep your follow up appointments with your medical provider. Further Instructions Case management was able to obtain low cost drug plans for Xarelto on 07/03/17. Patient will be discharged with Xarelto. Initial Xarelto dosing is 15 mg twice daily with food for 21 days followed by 20 mg once daily with food. Patient has 2 follow up appointments at [facility] Address: [facility] [address], [place] [address] , appointment re-scheduling can also be made with Dr. Dutta, primary care doctor on Thursday07/06/17 at 2:45 PM (Use Entrance # 2) Anticoagulation Clinic at 4:15 PM Patient also has been having hemoptysis from right lower lobe infarct for which inpatient treatment has been supportive care besides being treated for pulmonary embolism, Primary care physician can make referral to pulmonary clinic if needed.
[2017-07-03] MEDS ORDERED: WARFARIN SOD 7.5 MG TAB PO ONE (16:00)
[2017-07-04] MEDS ORDERED: WARFARIN SOD 5 MG TAB PO SCH (16:00)
[2017-07-04] MEDS ORDERED: WARFARIN PO SCH ×2 (16:00)
== END 2017-07-03 13:17 | disposition home or self-care (01) | DRG 176 ==
LOC: C.EDB 13:47 → UNDOADMIN 16:28 → C.2T 16:28 → ENRESERV 17:05 → C.MS4W 06-30 11:27
PROVIDERS: ADMIT Internal Medicine; ATTEND Hospitalist
DX: I26.99 Other pulmonary embolism without acute cor pulmonale (principal); F17.200 Nicotine dependence, unspecified, uncomplicated